=== PATIENT | female | born 1965 | race African-American/Black ===

== ENCOUNTER → 2016-03-21 | Outpatient (CLI) | payer MEDICARE, OTHER ==
[2016-03-21 18:08] LABS: Basophils % (A) 0 %; CHCM 30.7; Eosinophils # (A) 0.2 k/uL (0-0.7); Eosinophils % (A) 4 %; HCT 40.5 % (34.0-46.0); HDW 2.59; HGB 12.4 gm/dL (11.4-16.0); Hypochromasia Moderate; Luc # (Auto) 0.13; Luc % (Auto) 2; Lymphocytes # (A) 1.6 k/uL (1.0-4.8); Lymphocytes % (A) 29 %; MCH 27.1 pg (25.0-35.0); MCHC 30.6 g/dL (31.0-37.0); MCV 88.3 fL (80.0-100.0); Mean Platelet Volume 7.3; Monocytes # (A) 0.2 k/uL (0-1.0); Monocytes % (A) 4 %; Neutrophils # (A) 3.2 k/uL (1.3-7.7); Neutrophils % (A) 60 %; RBC 4.58 m/uL (3.80-5.40); RDW 13.6 % (11.5-15.5); WBC 5.3 k/uL (3.8-10.6); WBC (Perox) 5.52
[2016-03-21 19:11] LABS: ALT 32 U/L (9-52); AST 16 U/L (14-36); Alkaline Phosphatase 121 U/L (38-126); Anion Gap 12 mmol/L; Blood Urea Nitrogen 20 mg/dL (7-17); Calcium 9.5 mg/dL (8.4-10.2); Carbon Dioxide 22 mmol/L (22-30); Chloride 112 mmol/L (98-107); Glucose 82 mg/dL (74-99); Iron 58 ug/dL (37-170); Non-African American GFR(MDRD) 58 (>60 ml/min/1.73 sqM); Potassium 4.3 mmol/L (3.5-5.1); Sodium 146 mmol/L (137-145); Total Bilirubin 0.2 mg/dL (0.2-1.3); Total Protein 6.9 g/dL (6.3-8.2)
[2016-03-21 19:20] LABS: % Iron Saturation 14.4 % (20-50); Total Iron Binding Capacity 403 ug/dL (265-497)
[2016-03-21 19:56] LABS: Vitamin B12 362 pg/mL (239-931)
== END | disposition home or self-care (01) ==
LOC: LABWHC1 17:23
PROVIDERS: ATTEND Nurse Practitioner Acute Care
DX: E55.9 Vitamin D deficiency, unspecified (principal); R53.83 Other fatigue
CPT/HCPCS: 36415; 80053; 82306; 82607; 82728; 83540; 83550; 84439; 84443; 84466; 84481; 85025

== ENCOUNTER → 2016-03-30 | Outpatient (CLI) | payer MEDICARE, OTHER ==
--- NOTE | 2016-03-31 07:54 | US ---
EXAMINATION TYPE: US pelvis complete transvag DATE OF EXAM: 03/30/2016 5:12 PM COMPARISON: NONE CLINICAL HISTORY: N95.0 pOST MENOPAUSAL BLEEDING. PMB, Menses in Dec but has not had period for 2 yea rs TECHNIQUE: Transvaginal (TV) and Transabdominal (TA) Date of LMP: January, EXAM MEASUREMENTS: Uterus: 8.7 x 5.5 x 4.8 cm Endometrial Stripe: 0.4 cm Right Ovary: 3.8 x 2.6 x 2.4 cm Left Ovary: not seen Findings: 1. Uterus: Anteverted Heterogenous, Anterior fibroid, right= 5.8 x 4.3 x 4.1 cm. Fundal fibroid= 2.3 x 2.4 x 1.8 cm. 2. Endometrium: wnl 3. Right Ovary: lobular in shape with multiple echogenic foci, largest= 0.5 cm 4. Left Ovary: not seen Spectral, color and waveform doppler imaging shows good arterial and venous flow within the ovaries ; there is no evidence for ovarian torsion. 5. Bilateral Adnexa: wnl 6. Posterior cul-de-sac: no free fluid IMPRESSION: 1. Probable Leiomyomatous change of the uterus. Masses of other etiology not excluded. 2. Right ovarian calcifications of uncertain etiology.
== END | disposition home or self-care (01) ==
LOC: RADUSWWP 16:28
PROVIDERS: ATTEND Obstetrics & Gynecology
DX: N83.8 Other noninflammatory disorders of ovary, fallopian tube and broad ligament (principal); N95.0 Postmenopausal bleeding
CPT/HCPCS: 76830; 76856

== ENCOUNTER → 2016-05-31 | Outpatient (CLI) | payer MEDICARE, OTHER | END | disposition home or self-care (01) | LOC: LABWHC1 16:16 | PROVIDERS: ATTEND Psychiatry & Neurology Neurology | DX: E55.9 Vitamin D deficiency, unspecified (principal) | CPT/HCPCS: 36415; 82306 ==

== ENCOUNTER → 2016-07-02 | Outpatient (CLI) | payer MEDICARE, OTHER ==
[2016-07-02 08:32] LABS: Basophils % (A) 1 %; CH 26.8; Eosinophils # (A) 0.3 k/uL (0-0.7); Eosinophils % (A) 6 %; HCT 42.1 % (34.0-46.0); HDW 2.36; HGB 12.8 gm/dL (11.4-16.0); Hypochromasia Slight; Luc # (Auto) 0.14; Luc % (Auto) 3; Lymphocytes # (A) 1.7 k/uL (1.0-4.8); Lymphocytes % (A) 40 %; MCH 26.5 pg (25.0-35.0); MCHC 30.5 g/dL (31.0-37.0); MCV 86.9 fL (80.0-100.0); Mean Platelet Volume 7.1; Monocytes # (A) 0.3 k/uL (0-1.0); Monocytes % (A) 6 %; Neutrophils # (A) 1.9 k/uL (1.3-7.7); Neutrophils % (A) 44 %; RBC 4.84 m/uL (3.80-5.40); RDW 13.9 % (11.5-15.5); WBC 4.3 k/uL (3.8-10.6); WBC (Perox) 4.38
[2016-07-02 08:55] LABS: ALT 30 U/L (9-52); AST 14 U/L (14-36); Alkaline Phosphatase 109 U/L (38-126); Anion Gap 11 mmol/L; Blood Urea Nitrogen 16 mg/dL (7-17); Calcium 9.3 mg/dL (8.4-10.2); Carbon Dioxide 26 mmol/L (22-30); Chloride 108 mmol/L (98-107); Cholesterol 199 mg/dL (<200); Glucose 86 mg/dL (74-99); HDL Cholesterol 91 mg/dL (40-60); Non-African American GFR(MDRD) >60 (>60 ml/min/1.73 sqM); Potassium 4.3 mmol/L (3.5-5.1); Sodium 145 mmol/L (137-145); Total Bilirubin 0.4 mg/dL (0.2-1.3); Total Protein 6.9 g/dL (6.3-8.2); Triglycerides 61 mg/dL (<150)
== END | disposition home or self-care (01) ==
LOC: LABWHC1 07:54
PROVIDERS: ATTEND Family Medicine
DX: E78.5 Hyperlipidemia, unspecified (principal); E03.9 Hypothyroidism, unspecified; Z86.59 Personal history of other mental and behavioral disorders
CPT/HCPCS: 36415; 80053; 80061; 82306; 84439; 84443; 85025

== ENCOUNTER → 2016-08-20 | Outpatient (CLI) | payer MEDICARE, OTHER ==
--- NOTE | 2016-08-21 08:53 | MR ---
EXAMINATION TYPE: MR lumbar spine wo con DATE OF EXAM: 08/20/2016 5:35 PM COMPARISON: NONE HISTORY: LBP, BLE radic, no trauma/surgery Multiplanar, MultiSpin echo imaging of the lumbar spine was performed. L1-L2: Normal disc appearance without desiccation. There is mild posterocentral disc bulge without he rniation or protrusion. No canal stenosis is present. Foramina are patent bilaterally. L2-L3: Normal disc appearance without desiccation. No herniation, protrusion or disc bulging. No ca nal stenosis is present. Foramina are patent bilaterally. L3-L4: Normal disc appearance without desiccation. No herniation, protrusion or disc bulging. No ca nal stenosis is present. Foramina are patent bilaterally. L4-L5: Mild/moderate disc desiccation with mild posterior disc bulge. Grade 1 anterolisthesis L4 and L5 measuring 2 mm related to severe facet joint arthropathy. No evidence for central stenosis. L5-S1: Moderate disc desiccation. Posterior disc bulge with right paracentral disc protrusion. Mild e ffacement ventral thecal sac and mild right lateral recess stenosis. No evidence for central stenosis . Mild bilateral foraminal encroachment. Facet joint arthropathy. Lumbar segments are intact. No paraspinal masses are identified. Conus medullaris has a normal appe arance. IMPRESSION: 1. Degenerative disc disease as discussed. 2. Small right paracentral disc protrusion at L5-S1 with mild right lateral recess stenosis. 3. Grade 1 anterolisthesis L4 and L5.
== END | disposition home or self-care (01) ==
LOC: RADMRIMAIN 16:23
PROVIDERS: ATTEND Nurse Practitioner Acute Care
DX: M48.06 Spinal stenosis, lumbar region (principal); M51.26 Other intervertebral disc displacement, lumbar region; M51.36 Other intervertebral disc degeneration, lumbar region; M43.16 Spondylolisthesis, lumbar region
CPT/HCPCS: 72148

== ENCOUNTER → 2016-08-21 | Outpatient (CLI) | payer MEDICARE, OTHER ==
--- NOTE | 2016-08-22 07:39 | MM ---
Reason for exam: follow-up at short interval from prior study. Last mammogram was performed 7 months ago. History: Patient is postmenopausal. Benign US biopsy breast VAD RT of the right breast, July 17, 2013. Physical Findings: Nurse did not find any significant physical abnormalities on exam. MG 3D Diag Mammo W/Cad RT CC and MLO view(s) were taken of the right breast. Prior study comparison: February 03, 2016, right breast US breast workup limited RT. January 16, 2016, bilateral MG 3d screening mammo w/cad. July 22, 2014, bilateral MG screening mammo w CAD. June 25, 2013, bilateral MG screening mammo w CAD. There are scattered fibroglandular densities. Previous mammotome biopsy within the right breast. Ovoid nodular asymmetry is subtly seen again, posterior upper inner quadrant, not significantly changed. These results were verbally communicated with the patient and result sheet given to the patient on 08/21/16. ASSESSMENT: Incomplete: need additional imaging evaluation, BI-RAD 0 RECOMMENDATION: Ultrasound of the right breast.
--- NOTE | 2016-08-22 07:52 | USB ---
Reason for exam: additional evaluation requested from abnormal screening. History: Patient is postmenopausal. Benign US biopsy breast VAD RT of the right breast, July 17, 2013. US Breast RT Right breast ultrasound includes all four quadrants, the retroareolar region and axilla. Finding demonstrate a 9 x 3 x 7mm oval, hypoechoic lesion at 1 o'clock circumscribed, located deep. Previously measured 6 x 3 x 5mm, slightly larger now. This can again be reassessed in 6 months. These results were verbally communicated with the patient and result sheet given to the patient on 08/21/16. ASSESSMENT: Probably benign, BI-RAD 3 RECOMMENDATION: Follow-up diagnostic mammogram of both breasts in 5 months. Ultrasound of the right breast in 5 months. (1:00) Back on schedule December 2016.
== END | disposition home or self-care (01) ==
LOC: RADMAMWWP 14:59
PROVIDERS: ATTEND Family Medicine
DX: R92.8 Other abnormal and inconclusive findings on diagnostic imaging of breast (principal)
CPT/HCPCS: 76641; G0206; G0279

== ENCOUNTER → 2016-09-13 | Outpatient (CLI) | payer MEDICARE, OTHER ==
--- NOTE | 2016-09-14 07:32 | US ---
EXAMINATION TYPE: Soft tissue neck DATE OF EXAM: 09/13/2016 COMPARISON: NONE CLINICAL HISTORY: R22.1 Localized swelling, mass and lump, neck. Right posterior neck palpable mass 2.0 x 0.9 x 2.3 cm vascularity within. Fatty appearance Bilateral neck scanned, no evidence of lymphadenopathy. IMPRESSION: 1. Circumscribed soft tissue mass palpable abnormality may be a lipoma. Consider MRI with contrast to evaluate for liposarcoma.
--- NOTE | 2016-09-14 07:34 | US ---
EXAMINATION TYPE: US mass soft tissue chest/back DATE OF EXAM: 09/13/2016 COMPARISON: NONE CLINICAL HISTORY: PALPABLE MASS R22.1 LOCALIZED SWELLING. Left buttocks superior region 2-3 years 2.2 x 0.9 x 0.9 cm mass, vascularity within, mostly fatty appearing borders not clearly defined IMPRESSION: 1. Lipoma versus resolving old hematoma.
== END | disposition home or self-care (01) ==
LOC: RADUSWWP 15:34
PROVIDERS: ATTEND Family Medicine
DX: R22.1 Localized swelling, mass and lump, neck (principal); R22.2 Localized swelling, mass and lump, trunk
CPT/HCPCS: 76536

== ENCOUNTER → 2017-04-23 | Outpatient (CLI) | payer MEDICARE, OTHER ==
--- NOTE | 2017-04-23 12:19 | MM ---
Reason for exam: follow-up at short interval from prior study. Last mammogram was performed 8 months ago. History: Patient is postmenopausal. Benign US biopsy breast VAD RT of the right breast, July 17, 2013. Physical Findings: Nurse did not find any significant physical abnormalities on exam. MG 3D Diag Mammo W/Cad BRANDYN Bilateral CC and MLO view(s) were taken. Prior study comparison: August 21, 2016, right breast MG 3d diag mammo w/cad RT. January 16, 2016, bilateral MG 3d screening mammo w/cad. June 25, 2013, bilateral MG screening mammo w CAD. The breast tissue is heterogeneously dense. This may lower the sensitivity of mammography. There are benign appearing bilateral stable masses back to 2014. No suspicious abnormality. These results were verbally communicated with the patient and result sheet given to the patient on 04/23/17. ASSESSMENT: Benign, BI-RAD 2 RECOMMENDATION: Routine screening mammogram of both breasts in 1 year.
== END | disposition home or self-care (01) ==
LOC: RADMAMWWP 11:06
PROVIDERS: ATTEND Family Medicine
DX: R92.8 Other abnormal and inconclusive findings on diagnostic imaging of breast (principal)
CPT/HCPCS: 77066; G0279

== ENCOUNTER → 2017-06-26 | Outpatient (CLI) | payer MEDICARE, OTHER ==
[2017-06-26 09:19] LABS: HCT 39.7 % (34.0-46.0); HGB 12.6 gm/dL (11.4-16.0); MCH 26.5 pg (25.0-35.0); MCHC 31.7 g/dL (31.0-37.0); MCV 83.6 fL (80.0-100.0); Mean Platelet Volume 7.4; Platelet Count 287 k/uL (150-450); RBC 4.75 m/uL (3.80-5.40); RDW 13.8 % (11.5-15.5); WBC 4.7 k/uL (3.8-10.6)
[2017-06-26 10:11] LABS: Albumin 3.7 g/dL (3.5-5.0); Calcium 9.5 mg/dL (8.4-10.2); Magnesium 1.9 mg/dL (1.6-2.3); Phosphorus 3.7 mg/dL (2.5-4.5); Potassium 4.4 mmol/L (3.5-5.1); Total Bilirubin 0.2 mg/dL (0.2-1.3); Total Protein 6.3 g/dL (6.3-8.2)
[2017-06-26 16:34] LABS: Vitamin D 25 Hydroxy 16.4 ng/mL (30.0-100.0)
[2017-06-26 17:01] LABS: Parathyroid Hormone Intact 95.6 pg/mL (14.0-72.0)
[2017-06-26 17:24] LABS: Folate, Serum 15.1 ng/mL
[2017-06-26 18:48] LABS: Hemoglobin A1C 5.9 % (4.0-6.0)
[2017-07-01 08:33] LABS: Anabasine Urine <2.0 ng/mL (<2.0)
== END ==
LOC: LABWHC1 08:36
PROVIDERS: ATTEND Surgery
DX: Z01.818 Encounter for other preprocedural examination (principal); E55.9 Vitamin D deficiency, unspecified; E66.9 Obesity, unspecified; Z01.812 Encounter for preprocedural laboratory examination
CPT/HCPCS: 84134; 84425; 80061; 80053; 82607; 82746; 83735; 84100; 85027; 82306; 83970; 83036; 93005; 36415; G0480; 80323

== ENCOUNTER → 2018-05-21 | Outpatient (CLI) | payer MEDICARE ==
--- NOTE | 2018-05-21 11:57 | CT ---
EXAMINATION TYPE: CT chest wo con DATE OF EXAM: 05/21/2018 COMPARISON: None HISTORY: Cough, Abnormal findings of diagnostic imaging CT DLP: 631 mGycm. Automated Exposure Control for Dose Reduction was Utilized. TECHNIQUE: CT scan of the thorax is performed without IV contrast. FINDINGS: LUNGS: The lungs are grossly clear, there is no concerning parenchymal mass or nodule identified. T here is no pleural effusion or pneumothorax seen. The tracheobronchial tree is patent. Groundglass c hanges are seen within the left upper lobe lingular segment. 2 mm subpleural nodule posterior margin superior segment right lower lobe noted as a benign appearance. MEDIASTINUM: Lack of IV contrast is noted to limit evaluation for mediastinal and especially hilar ad enopathy. There are no definitive greater than 1 cm hilar or mediastinal lymph nodes. No cardiomega ly or pericardial effusion is seen. Atherosclerotic change of the aorta. OTHER: There is a 1 cm nodule within the right breast. Mammogram recommended. Hypertrophic and degene rative change of the spine noted.. IMPRESSION: 1. Faint groundglass changes within the lingular segment left upper lobe most likely in the basis of atelectasis rather than resolving pneumonitis or infiltrate correlate clinically. 2. There is a 2 mm subpleural nodule superior segment right lower lobe too small to characterize. Six -month follow-up could be obtained to confirm stability. 3. There is a 1 cm nodule within the right breast for which mammogram is suggested.
== END | disposition home or self-care (01) ==
LOC: RADCTMAIN 11:15
PROVIDERS: ATTEND Family Medicine
DX: J94.8 Other specified pleural conditions (principal); N63.0 Unspecified lump in unspecified breast; R91.8 Other nonspecific abnormal finding of lung field
CPT/HCPCS: 71250

== ENCOUNTER → 2018-09-03 | Outpatient (CLI) | payer MEDICARE, OTHER ==
--- NOTE | 2018-09-03 10:53 | MM ---
Reason for exam: additional evaluation requested from prior study. Last mammogram was performed 1 year and 4 months ago. History: Patient is postmenopausal. Benign US biopsy breast VAD RT of the right breast, July 17, 2013. Physical Findings: Nurse did not find any significant physical abnormalities on exam. MG 3D Diag Mammo W/Cad BRANDYN Bilateral CC and MLO view(s) were taken. Prior study comparison: April 23, 2017, bilateral MG 3d diag mammo w/cad BRANDYN. August 21, 2016, right breast MG 3d diag mammo w/cad RT. The breast tissue is heterogeneously dense. This may lower the sensitivity of mammography. Previous mammotome biopsy in the right breast. There is chronic nodularity in the left breast. There is no discrete abnormality. These results were verbally communicated with the patient and result sheet given to the patient on 09/03/18. ASSESSMENT: Benign, BI-RAD 2 RECOMMENDATION: Routine screening mammogram of both breasts in 1 year.
--- NOTE | 2018-09-03 10:54 | USB ---
Reason for exam: additional evaluation requested from prior study. History: Patient is postmenopausal. Benign US biopsy breast VAD RT of the right breast, July 17, 2013. US Breast RT Right complete breast ultrasound includes all four quadrants, the retroareolar region and axilla. Finding demonstrates a 0.8 x 0.4 x 0.7cm oval, hypoechoic lesion at 1 o'clock, stable from 2017, perhaps prominent lobule. These results were verbally communicated with the patient and result sheet given to the patient on 09/03/18. ASSESSMENT: Benign, BI-RAD 2 RECOMMENDATION: Routine screening mammogram of both breasts in 1 year.
== END | disposition home or self-care (01) ==
LOC: RADMAMWWP 09:06
PROVIDERS: ATTEND Family Medicine
DX: R92.8 Other abnormal and inconclusive findings on diagnostic imaging of breast (principal)
CPT/HCPCS: 77066; 76641; G0279; 77062

== ENCOUNTER → 2019-04-30 | Outpatient (CLI) | payer MEDICARE, OTHER ==
--- NOTE | 2019-04-30 12:28 | CT ---
EXAMINATION TYPE: CT chest wo con DATE OF EXAM: 04/30/2019 COMPARISON: 05/21/2018 HISTORY: Lung nodule, SOB CT DLP: 459 mGycm. Automated Exposure Control for Dose Reduction was Utilized. TECHNIQUE: CT scan of the thorax is performed without IV contrast. FINDINGS: LUNGS: The lungs are grossly clear, there is no concerning parenchymal mass or nodule identified. The re is no pleural effusion or pneumothorax seen. The tracheobronchial tree is patent. Groundglass mix ges are seen within the left upper lobe lingular segment. 2 mm subpleural nodule posterior margin sup erior segment right lower lobe noted as a benign appearance. Atherosclerotic change of the aorta. MEDIASTINUM: Lack of IV contrast is noted to limit evaluation for mediastinal and especially hilar ad enopathy. There are no definitive greater than 1 cm hilar or mediastinal lymph nodes. No cardiomega ly or pericardial effusion is seen. OTHER: There is a 1 cm nodule within the right breast is stable. Hypertrophic and degenerative gillette e of the spine noted. . IMPRESSION: 1. Stable subpleural nodule measuring 1 to 2 mm superior segment right lower lobe likely postinflamma tory. Has a benign appearance. 2. Vague groundglass changes within the lingular segment left upper lobe persist and are stable could represent chronic atelectasis. 3. Stable right breast nodule or nodular tissue unchanged from prior exam
== END | disposition home or self-care (01) ==
LOC: RADCTMAIN 11:15
PROVIDERS: ATTEND Internal Medicine Pulmonary Disease
DX: R91.1 Solitary pulmonary nodule (principal); E66.01 Morbid (severe) obesity due to excess calories
CPT/HCPCS: 71250

== ENCOUNTER → 2019-09-03 | Outpatient (CLI) | payer MEDICARE, OTHER ==
--- NOTE | 2019-09-03 18:12 | P.HPBAR ---
Bariatric H&P - History & Physicial H&P Date: 09/03/19 History & Physicial: Visit/CC: Patient initial contact: Initial weight: Initial weight in pounds: Height: Initial BMI: Last weight: Current weight: Current weight in pounds: Current BMI: [place] body weight (based on NIH guidelines): Excess body weight loss: The patient is a 54 year-old F who presents for Bariatric Assessment. Patient here to discuss bariatric surgery. She was previously seen at [facility] for sleeve gastrectomy. Apparently there were some issues with her family's health and she had to postpone. Remains interested in sleeve gastrectomy. Current BMI 38.6. Patient suffers from hypertension and hypercholesterolemia. Denies diabetes or GERD. No dysphagia or DVT. No upper abdominal surgeries in the past. Patient is a current smoker but states she is decreasing. Review of Systems The patient denies any acute changes in vision or hearing, no dysphagia or odynophagia, no chest pain or shortness of breath, no dysuria or hematuria, no headache, no runny nose, no rectal bleeding or melena, no unexplained weight loss Surgical - Exam Physical exam: General: Well-developed, well-nourished HEENT: Normocephalic, sclerae nonicteric Abdomen: Nontender, nondistended Extremities: No edema Neuro: Alert and oriented Bariatric Assessment & Plan (1) Morbid obesity Narrative/Plan: Both surgical and nonoperative weight loss methods discussed with the patient. Risks and benefits of both gastric bypass and sleeve gastrectomy discussed in detail as well. Patient remains interested in sleeve gastrectomy at this time. We'll proceed with upper endoscopy at this time. Obtain medical clearance. Clarify whether to revise weight loss is required. Patient will follow up in the bariatric clinic after endoscopy performed. Status: Acute Bariatric Checklist Checklist: Plan: Checklist: EGD: 1. Hiatal hernia: 2. H. Pylori: HgbA1c: Vitamin D: Smoking: Primary care physician referral: Psychiatry clearance: Cardiology clearance: Sleep study: Diet journal: VTE risk score: VTE risk level: Rehab needs at discharge:
== END | disposition home or self-care (01) ==
LOC: BARWHC3 15:27
PROVIDERS: ATTEND Surgery
DX: E66.01 Morbid (severe) obesity due to excess calories (principal); Z68.38 Body mass index [BMI] 38.0-38.9, adult; I10 Essential (primary) hypertension; E78.00 Pure hypercholesterolemia, unspecified; F17.200 Nicotine dependence, unspecified, uncomplicated
CPT/HCPCS: 99211

== ENCOUNTER → 2019-10-05 | Outpatient (CLI) | payer MEDICARE, OTHER ==
[2019-10-05 13:06] VITALS: BMI 43.3
== END | disposition home or self-care (01) ==
LOC: BARWHC3 08:42
PROVIDERS: ATTEND Surgery
DX: E66.01 Morbid (severe) obesity due to excess calories (principal); Z68.41 Body mass index [BMI] 40.0-44.9, adult; Z71.3 Dietary counseling and surveillance
CPT/HCPCS: 97804

== ENCOUNTER 2019-10-13 09:17 | Day surgery (SDC) | payer MEDICARE, OTHER ==
[2019-10-08 14:51] VITALS: BMI 41.9
[~2019-10-13 09:17] MED LIST: LACTATED RINGERS 1,000 ML IV SCH; LIDOCAINE 1% (10MG/ML) FOR IV START INTRADERMA PRN
[2019-10-13] MEDS ORDERED: LIDOCAINE 1% INJ 10MG/ML (20 ML MDV) ONE (10:02)
[2019-10-13] MEDS ORDERED: PROPOFOL 10 MG/ML 20 ML VIAL IV ONE (10:02)
[2019-10-13] MEDS ORDERED: ONDANSETRON 4 MG/2 ML VIAL ONE (10:02)
[2019-10-13 10:03] VITALS: RESP 16; TEMP 97
--- NOTE | 2019-10-13 10:05 | P.GSHP ---
History of Present Illness H&P Date: 10/13/19 Chief Complaint: GERD Patient today for upper endoscopy. Patient is being evaluated for sleep gastrectomy. Denies dysphagia. Minimal reflux. Past Medical History Past Medical History: Hyperlipidemia, Hypertension, Osteoarthritis (OA) History of Any Multi-Drug Resistant Organisms: None Reported Past Surgical History: Tubal Ligation Additional Past Surgical History / Comment(s): FIBROID SURGERY Past Anesthesia/Blood Transfusion Reactions: No Reported Reaction Smoking Status: Current every day smoker Medications and Allergies Home Medications Medication Instructions Recorded Confirmed Type Acetaminophen-Codeine 300-30mg 1 tab PO DIRECTED PRN 09/14/19 10/13/19 History [Tylenol w/codeine #3] Acyclovir 400 mg PO DIRECTED 09/14/19 10/13/19 History Ascorbic Acid [Vitamin C] 1,000 mg PO DAILY 09/14/19 10/13/19 History Atorvastatin [Lipitor] 40 mg PO HS 09/14/19 10/13/19 History Cholecalciferol (Vitamin D3) 1,000 units PO DAILY 09/14/19 10/13/19 History [Vitamin D3] Multivitamins, Thera [Multivitamin 1 tab PO DAILY 09/14/19 10/13/19 History (formulary)] QUEtiapine XR [SEROquel XR] 150 mg PO DAILY 09/14/19 10/13/19 History Zinc 50 mg PO DAILY 09/14/19 10/13/19 History buPROPion XL [Wellbutrin XL] 300 mg PO DAILY 09/14/19 10/13/19 History hydroCHLOROthiazide 25 mg PO DAILY 09/14/19 10/13/19 History Aspirin [Adult Low Dose Aspirin EC] 81 mg PO DAILY 10/08/19 10/13/19 History Biotin 5 mg PO DAILY 10/08/19 10/13/19 History Butalb/Acetaminophen/Caffeine 1 - 2 cap PO Q4HR PRN 10/08/19 10/13/19 History [Fioricet 50-300-40 mg Capsule] Calcium Carbonate [Calcium] 600 mg PO DAILY 10/08/19 10/13/19 History Magnesium 200 mg PO DAILY 10/08/19 10/13/19 History Vitamin E Acetate [Vitamin E] 200 unit PO DAILY 10/08/19 10/13/19 History tiZANidine [Zanaflex] 4 mg PO Q8HR PRN 10/08/19 10/13/19 History Allergies Allergy/AdvReac Type Severity Reaction Status Date / Time No Known Allergies Allergy Verified 10/13/19 09:41 Surgical - Exam Vital Signs Temp Pulse Resp BP Pulse Ox 97.0 F L 89 16 131/81 100 10/13/19 09:45 10/13/19 09:45 10/13/19 09:45 10/13/19 09:45 10/13/19 09:45 Physical exam: General: Well-developed, well-nourished HEENT: Normocephalic, sclerae nonicteric Abdomen: Nontender, nondistended Extremities: No edema Neuro: Alert and oriented Assessment and Plan (1) GERD (gastroesophageal reflux disease) Narrative/Plan: Will proceed with upper endoscopy at this time Current Visit: Yes Status: Acute Code(s): K21.9 - GASTRO-ESOPHAGEAL REFLUX DISEASE WITHOUT ESOPHAGITIS SNOMED Code(s): 569691901
--- NOTE | 2019-10-13 10:13 | P.PCN ---
Date of Procedure: 10/13/19 Procedure(s) Performed: Preoperative Dx: Mild reflux, presurgical Postoperative Dx: Mild gastritis, small hiatal hernia Procedure: EGD with Bx Anesthesia: Sedation Endoscopist: Dr. Damon Specimens: Antrum Endoscopic Procedure: The patient was on the endoscopy table in the left decubitus position. The Olympus gastroscope was inserted into the oropharynx and passed under direct visualization to the region of the third portion of the duodenum. From that point the scope was slowly withdrawn inspecting all surfaces carefully. There were no neoplastic inflammatory or polypoid lesions throughout the duodenum. The pylorus was widely patent. The stomach was carefully inspected. There was mild gastritis present. A biopsy of the antrum took place to rule out H. pylori. Retroflexion revealed a small hiatal hernia. The GE junction was present 1-1.5 cm above the diaphragmatic hiatus. The esophagus was then carefully examined. There were no neoplastic inflammatory or polypoid lesions throughout the visualized esophagus. The patient was then taken to the recovery room in stable condition per anesthesia guidelines. Recommendations: Await biopsy results. Follow-up bariatric clinic to discuss surgical scheduling. Patient still working on nicotine addiction.
[2019-10-13 10:42] VITALS: BP 116/76; PULSE 73
== END 2019-10-13 11:24 | disposition home or self-care (01) ==
LOC: ORWHC2ENDO 09:17
PROVIDERS: ATTEND Surgery
DX: K29.70 Gastritis, unspecified, without bleeding (principal); K44.9 Diaphragmatic hernia without obstruction or gangrene; K21.9 Gastro-esophageal reflux disease without esophagitis; E66.01 Morbid (severe) obesity due to excess calories; I10 Essential (primary) hypertension; E78.5 Hyperlipidemia, unspecified; F32.9 Major depressive disorder, single episode, unspecified; F17.200 Nicotine dependence, unspecified, uncomplicated; M19.90 Unspecified osteoarthritis, unspecified site; Z98.51 Tubal ligation status; Z98.890 Other specified postprocedural states; Z79.891 Long term (current) use of opiate analgesic; Z79.82 Long term (current) use of aspirin; Z79.899 Other long term (current) drug therapy; Z68.41 Body mass index [BMI] 40.0-44.9, adult
CPT/HCPCS: 88305; 43239; J2405; J2001; J2704

== ENCOUNTER → 2019-11-03 | Outpatient (CLI) | payer MEDICARE, OTHER ==
[2019-11-03 14:59] LABS: Basophils % (A) 1 %; Eosinophils # (A) 0.2 k/uL (0-0.7); Eosinophils % (A) 4 %; HCT 41.6 % (34.0-46.0); HGB 12.7 gm/dL (11.4-16.0); Lymphocytes # (A) 2.1 k/uL (1.0-4.8); Lymphocytes % (A) 37 %; MCH 26.6 pg (25.0-35.0); MCHC 30.5 g/dL (31.0-37.0); Mean Platelet Volume 7.9; Monocytes # (A) 0.2 k/uL (0-1.0); Monocytes % (A) 4 %; Neutrophils % (A) 52 %; Platelet Count 299 k/uL (150-450); RBC 4.79 m/uL (3.80-5.40); RDW 14.2 % (11.5-15.5); WBC 5.7 k/uL (3.8-10.6)
[2019-11-03 15:06] LABS: ALT 33 U/L (4-34); AST 27 U/L (14-36); African American GFR (CKD) >90 (>60 ml/min/1.73 sqM); Alkaline Phosphatase 126 U/L (38-126); Anion Gap 7 mmol/L; Blood Urea Nitrogen 24 mg/dL (7-17); Calcium 9.9 mg/dL (8.4-10.2); Carbon Dioxide 28 mmol/L (22-30); Chloride 106 mmol/L (98-107); Glucose 88 mg/dL (74-99); Non-African American GFR(CKD) 82 (>60 ml/min/1.73 sqM); Potassium 4.1 mmol/L (3.5-5.1); Sodium 141 mmol/L (137-145); Total Bilirubin 0.3 mg/dL (0.2-1.3); Total Protein 6.7 g/dL (6.3-8.2)
== END | disposition home or self-care (01) ==
LOC: LABPAT 14:20
PROVIDERS: ATTEND Surgery
DX: Z01.818 Encounter for other preprocedural examination (principal)
CPT/HCPCS: 36415; 80053; 85025

== ENCOUNTER → 2019-11-03 | Outpatient (CLI) | payer MEDICARE, OTHER ==
[2019-11-03 13:25] VITALS: BP 141/88; PULSE 79; RESP 16; TEMP 98.4; BMI 43.7
--- NOTE | 2019-11-03 15:41 | P.BASOAP ---
Subjective Progress Note Date: 11/03/19 Principal diagnosis: Morbid obesity Patient returns after recent preop EGD. Scope showed gastritis and a small hiatal hernia. Patient remains interested in proceeding with sleeve gastrectomy. No new changes to the history and physical. Objective - Vital Signs Vital signs: Vital Signs Temp 98.4 F 11/03/19 13:23 Pulse 79 11/03/19 13:23 Resp 16 11/03/19 13:23 BP 141/88 11/03/19 13:23 Pulse Ox Intake & Output 11/02/19 11/03/19 11/03/19 18:59 06:59 18:59 Weight 119.295 kg - Exam Physical exam: General: Well-developed, well-nourished HEENT: Normocephalic, sclerae nonicteric Abdomen: Nontender, nondistended Extremities: No edema Neuro: Alert and oriented Assessment/Plan (1) Morbid obesity Narrative/Plan: 54-year-old female with morbid obesity. We'll proceed with sleeve gastrectomy 11/22. The surgical consent form along with the possible risks were reviewed in detail with the patient. All questions answered. She wishes to proceed. Will plan repair hiatal hernia at that time. Plan: Date: 11/03/19 Initial Weight: 118.388 kg Initial BMI: 43.4 Current Weight: 119.295 kg Current BMI: 43.7 Type of Surgery: Total Volume in Band: Previous Volume: Volume Removed: Volume Added: Band Size:
== END | disposition home or self-care (01) ==
LOC: BARWHC3 12:56
PROVIDERS: ATTEND Surgery
DX: E66.01 Morbid (severe) obesity due to excess calories (principal); Z68.41 Body mass index [BMI] 40.0-44.9, adult
CPT/HCPCS: 99211

== ENCOUNTER 2019-11-23 07:45 | Inpatient (IN) | payer MEDICARE, OTHER ==
[~2019-11-23 07:45] MED LIST changes: +ACETAMINOPHEN TAB 500 MG TAB PO ONE; +DEXAMETHASONE SOD PHOSPHATE 10 MG/ML 1 ML VIAL IV ONE; +ENOXAPARIN 40 MG/0.4 ML SYRINGE SQ ONE; -LACTATED RINGERS 1,000 ML IV SCH; -LIDOCAINE 1% (10MG/ML) FOR IV START INTRADERMA PRN; +ONDANSETRON 4 MG/2 ML VIAL IVP ONE; +SCOPOLAMINE 1.5MG/72HR PATCH TRANSDERM ONE; +ceFAZolin 3 GM in SODIUM CHLORIDE 0.9% 100 ML IVPB ONE
[2019-11-23] MEDS: LACTATED RINGERS 1,000 ML IV SCH ×2 (10:58→23:49)
[2019-11-23] MEDS ORDERED: ACETAMINOPHEN IV (For NPO) 1,000 MG/100 ML VIAL IVPB ONE (11:19)
--- NOTE | 2019-11-23 11:53 | P.GSHP ---
History of Present Illness H&P Date: 11/23/19 Chief Complaint: Morbid obesity Patient here today for elective sleeve gastrectomy. She was first seen in August. Patient with complaints of hypertension hypercholesterolemia. Patient has suffered with her weight for the majority of her life. BMI when evaluated initially 38.6. Denies DVT or dysphagia. Recent EGD showed mild gastritis and small hiatal hernia. No new issues since her last clinic visit. She was smoking but has stopped as of several weeks ago. Past Medical History Past Medical History: Hyperlipidemia, Hypertension Additional Past Medical History / Comment(s): hx migraines, states chronic back pain History of Any Multi-Drug Resistant Organisms: None Reported Past Surgical History: Tubal Ligation Additional Past Surgical History / Comment(s): FIBROID SURGERY, EGD Past Anesthesia/Blood Transfusion Reactions: No Reported Reaction Smoking Status: Former smoker Medications and Allergies Home Medications Medication Instructions Recorded Confirmed Type Acetaminophen-Codeine 300-30mg 1 tab PO DIRECTED PRN 09/14/19 11/23/19 History [Tylenol w/codeine #3] Acyclovir 400 mg PO DIRECTED 09/14/19 11/23/19 History Ascorbic Acid [Vitamin C] 1,000 mg PO DAILY 09/14/19 11/23/19 History Atorvastatin [Lipitor] 40 mg PO HS 09/14/19 11/23/19 History Cholecalciferol (Vitamin D3) 1,000 units PO DAILY 09/14/19 11/23/19 History [Vitamin D3] Multivitamins, Thera [Multivitamin 1 tab PO DAILY 09/14/19 11/23/19 History (formulary)] QUEtiapine XR [SEROquel XR] 150 mg PO HS 09/14/19 11/23/19 History Zinc 50 mg PO DAILY 09/14/19 11/23/19 History buPROPion XL [Wellbutrin XL] 300 mg PO DAILY 09/14/19 11/23/19 History hydroCHLOROthiazide 25 mg PO DAILY 09/14/19 11/23/19 History Aspirin [Adult Low Dose Aspirin EC] 81 mg PO DAILY 10/08/19 11/23/19 History Biotin 5 mg PO DAILY 10/08/19 11/23/19 History Butalb/Acetaminophen/Caffeine 1 - 2 cap PO Q4HR PRN 10/08/19 11/23/19 History [Fioricet 50-300-40 mg Capsule] Calcium Carbonate [Calcium] 600 mg PO DAILY 10/08/19 11/23/19 History Magnesium 200 mg PO DAILY 10/08/19 11/23/19 History Vitamin E Acetate [Vitamin E] 200 unit PO DAILY 10/08/19 11/23/19 History tiZANidine [Zanaflex] 4 mg PO Q8HR PRN 10/08/19 11/23/19 History Allergies Allergy/AdvReac Type Severity Reaction Status Date / Time No Known Allergies Allergy Verified 11/23/19 10:43 Surgical - Exam Vital Signs Temp 97 F L 11/23/19 10:35 Physical exam: General: Well-developed, well-nourished HEENT: Normocephalic, sclerae nonicteric Abdomen: Nontender, nondistended Extremities: No edema Neuro: Alert and oriented Assessment and Plan (1) Morbid obesity Narrative/Plan: Will proceed with elective sleeve gastrectomy at this time. The risks of bleeding, infection, stenosis, stricture, leak, abscess, fistula formation, peritonitis, poor weight loss, reflux, vomiting, conversion to an open procedure, aborting sleeve gastrectomy, GA, PE, DVT, and were discussed. The patient understands and wishes to proceed. Current Visit: No Status: Acute Code(s): E66.01 - MORBID (SEVERE) OBESITY DUE TO EXCESS CALORIES SNOMED Code(s): 358538140
[2019-11-23] MEDS ORDERED: BUPIVACAINE (PF) 0.25% 30 ML VIAL SQ ONE ×2 (12:59)
[2019-11-23] MEDS ORDERED: LACTATED RINGERS 1,000 ML IV ONE ×2 (13:51)
[2019-11-23] MEDS ORDERED: HYOSCYAMINE ORAL DROPS 1.875 MG/15 ML BOTTLE PO PRN (14:27)
[2019-11-23] MEDS ORDERED: SIMETHICONE 40 MG/0.6 ML DROPS 2,000 MG/30 ML BOTTLE PO PRN (14:27)
[2019-11-23] MEDS ORDERED: NALOXONE 0.4 MG/ML 1 ML VIAL IV PRN (14:27)
[2019-11-23] MEDS ORDERED: diphenhydrAMINE 50 MG/ML 1 ML VIAL IVP PRN (14:27)
--- NOTE | 2019-11-23 14:27 | P.OP ---
Date of Procedure: 11/23/19 Procedure(s) Performed: PREOPERATIVE DIAGNOSIS: Morbid obesity, hypertension POSTOPERATIVE DIAGNOSIS: Same PROCEDURE: Laparoscopic sleeve gastrectomy SURGEON: Marisol EBL: Minimal ANESTHESIA: General COMPLICATIONS: None OPERATIVE PROCEDURE: Patient was placed in the operating table in the supine position. She was placed under general anesthesia at that time. The abdomen was prepped and draped in sterile fashion after the patient was placed in lithotomy. A 5 mm optical trocar was used to enter the abdominal cavity in the left upper quadrant. Insufflation took place to 15 millimeters mercury. An additional right subxiphoid 5 mm trocar was then placed under direct visualization and then removed. 2 additional 5 mm trochars were placed in the right upper quadrant and left upper quadrant under direct visualization and a 15 mm trocar in the supraumbilical location. The liver was retracted using a medium Carroll liver retractor through the right subxiphoid trocar site. The hiatus was inspected. The patient had no visible hiatal hernia I did dissect the posterior crura. I was able to visualize the right and left crura nicely. There was no is unable defect in the crura. The patient had a very oblique angle where the esophagus passed through the diaphragmatic crura which may have been given the appearance of a hernia. The stomach itself was somewhat unusual in its shape as well. The patient had a pylorus that was positioned more proximally than expected. The proximal duodenum was slightly distended. Initially was difficult to identify the transition point between the prepyloric region and duodenum. At that point I moved to the mid aspect of the greater curvature the stomach. The short gastric vasculature was divided using a LigaSure device proximally. I then switched and divided the short gastrics distally to a 3-4 cm from the pylorus. The dissection took place up to the left diaphragmatic crura at that point. The posterior short gastrics were likewise divided using the LigaSure device. Once the stomach was fully mobilized the blunt tipped 40-St Lucian bougie dilator was advanced into the stomach and advanced all the way to the prepyloric location. A black echelon 60 stapler was utilized and fired tangentially across the antrum taking care to avoid narrowing at the incisura angularis. Subsequent firings of the stapler took place. A total of 5 green echelon 60 staplers with seam guard took place proximally staying on the outer edge of our dilator. Once we reached the most proximal portion of the stomach a single firing of the gold echelon 60 stapler without seen guard took place. The oral gastric tube was reinserted. The stomach was insufflated with approximately 100 mL of methylene blue. No evidence of leak or obstruction was seen. There was 2-3 areas along the staple line of oozing. These were controlled using the 12 mm clipper. Tisseel fibrin glue was used along the length of the staple line at that point. The stomach remnant was removed from the 15 mm trocar site without difficulty. The fascia at the 15 more site was closed using interrupted 0 Vicryl sutures with the laparoscopic suture passer and Hay Emily technique. The insufflation was evacuated. The skin at all 5 incisions were closed using 4-0 Monocryl sutures. Skin glue was then applied. DISPOSITION: Stable to recovery room
[2019-11-23] MEDS: HYDROmorphone 0.5 MG/0.5 ML SYRINGE IVP PRN ×4 (14:35→14:59)
[2019-11-23] MEDS: ONDANSETRON 4 MG/2 ML VIAL IVP PRN ×2 (14:42→21:08)
[2019-11-23] MEDS ORDERED: PROMETHAZINE INJ 25 MG/ML 1 ML VIAL IVPB ONE (15:04)
[2019-11-23] MEDS: fentaNYL (PF) 50 MCG/ML 2 ML AMP IVP ONE ×2 (15:54→16:06)
[2019-11-23] MEDS: HYDROmorphone 1 MG/ML 1 ML SYRINGE IVP PRN ×2 (17:00→21:08)
[2019-11-23] MEDS ORDERED: ACETAMINOPHEN IV (For NPO) 1,000 MG in EMPTY BAG 1 BAG IVPB ONE (18:00)
[2019-11-23] MEDS: ALBUTEROL NEBULIZED 2.5 MG/3 ML INHALATION SCH (19:56)
[2019-11-23] MEDS: 0.9% NACL WITH KCL 20 MEQ/L 1,000 ML IV SCH ×2 (21:08→23:49)
[2019-11-23] MEDS: ENOXAPARIN 40 MG/0.4 ML SYRINGE SQ SCH (23:47)
[2019-11-24] MEDS: HYDROmorphone 1 MG/ML 1 ML SYRINGE IVP PRN ×3 (01:08→07:38)
[2019-11-24] MEDS: ONDANSETRON 4 MG/2 ML VIAL IVP PRN ×2 (04:14→11:00)
[2019-11-24] MEDS: PANTOPRAZOLE 40 MG/10 ML VIAL IV SCH (07:38)
[2019-11-24] MEDS: 0.9% NACL WITH KCL 20 MEQ/L 1,000 ML IV SCH (07:39)
[2019-11-24 08:10] LABS: Basophils % (A) 0 %; Eosinophils # (A) 0.1 k/uL (0-0.7); Eosinophils % (A) 2 %; HCT 38.1 % (34.0-46.0); HGB 12.1 gm/dL (11.4-16.0); Lymphocytes # (A) 1.4 k/uL (1.0-4.8); Lymphocytes % (A) 16 %; MCH 27.5 pg (25.0-35.0); MCHC 31.7 g/dL (31.0-37.0); MCV 86.5 fL (80.0-100.0); Mean Platelet Volume 8.2; Monocytes # (A) 0.3 k/uL (0-1.0); Monocytes % (A) 4 %; Neutrophils # (A) 6.3 k/uL (1.3-7.7); Neutrophils % (A) 77 %; Platelet Count 307 k/uL (150-450); RDW 14.2 % (11.5-15.5); WBC 8.2 k/uL (3.8-10.6)
[2019-11-24] MEDS: ALBUTEROL NEBULIZED 2.5 MG/3 ML INHALATION SCH ×4 (09:06→21:14)
--- NOTE | 2019-11-24 09:29 | CONS ---
CONSULTATION REASON FOR CONSULTATION: Advice regarding hypertension requested by Dr. Damon. HISTORY OF PRESENT ILLNESS: This is a 54-year-old woman with a past medical history of hypertension, hyperlipidemia, history of migraines, history of chronic back pain being followed by Dr. Pricilla Thomas in the outpatient setting, underwent laparoscopic sleeve gastrectomy by Dr. Damon for morbid obesity and hypertension. The patient tolerated the procedure well. The patient complains of postoperative pain. Otherwise, there is no history of shortness of breath, no history of chest pain, palpitations, headache, loss of consciousness, nausea, diarrhea, fever, rigors or chills at this time. PAST MEDICAL HISTORY: History of hypertension, hyperlipidemia, history of migraines, history of chronic back pain, tubal ligation, anxiety, depression. MEDICATIONS: Prior to admission include Zanaflex, hydrochlorothiazide, Wellbutrin XL, zinc, vitamin E, Seroquel XR, multivitamins, magnesium, cholecalciferol, calcium carbonate, Fioricet, biotin, Lipitor, aspirin, vitamin C, acyclovir, Tylenol No.3. ALLERGIES: None. FAMILY HISTORY: No history of heart disease or strokes in the family. SOCIAL HISTORY: No history of smoking. No history of alcohol intake. REVIEW OF SYSTEMS: ENT: No diminished hearing, diminished vision. CARDIOVASCULAR: No angina, palpitations. RESPIRATORY: As mentioned earlier. GI: As mentioned earlier. : No dysuria. NERVOUS SYSTEM: No numbness or weakness. ALLERGY/IMMUNOLOGY: No asthma or hayfever. MUSCULOSKELETAL: As mentioned earlier. ENDOCRINE: No history of diabetes or hypothyroidism. CONSTITUTIONAL: As mentioned earlier. DERMATOLOGY: Negative. RHEUMATOLOGY: Negative. PSYCHIATRY: As mentioned earlier. PHYSICAL EXAMINATION: Patient is alert and oriented x3, pulse is 73, blood pressure 118/80, respiration 18, temperature 97.4, pulse ox 100% on room air. HEENT: Conjunctivae normal. Oral mucosa moist. NECK: No jugular venous distention. No lymph node enlargement. CARDIOVASCULAR: S1, S2, muffled. RESPIRATION: Breath sounds diminished at the bases, no rhonchi, no crackles. ABDOMEN: Soft, obese, status post laparoscopic gastrectomy. Otherwise, soft. LEGS: No edema, no swelling. NERVOUS SYSTEM: Higher functions as mentioned earlier. Moves all 4 limbs. No focal motor and sensory deficits. LYMPHATICS: No lymph node enlargement. SKIN: No ulcer, rash. JOINTS: No active arthropathy. LABS: Preoperative labs are reviewed. CBC within normal limits. Chemistry shows BUN 24, otherwise within normal limits. ASSESSMENT: 1. Morbid obesity, status post laparoscopic sleeve gastrectomy. 2. History of hypertension. 3. History of hyperlipidemia. 4. History of migraines. 5. Chronic back pain. 6. DJD. 7. History of anxiety, depression. 8. Remote history of nicotine dependence. 9. Obesity with body mass of 41.6. 10.FULL CODE. RECOMMENDATION: In this 54-year-old woman who presented after surgery had multiple medical issues, at this time I recommend to resume the home medications once the patient is p.o. Otherwise, DVT prophylaxis, incentive spirometry. Will follow the patient closely with you and patient may be asked to follow up with Dr. Pricilla Thomas after discharge. Thank you Dr. Damon for letting us participate in the care of this patient. MMODL / IJN: [id number] /
--- NOTE | 2019-11-24 09:54 | FL ---
EXAMINATION TYPE: FL UGI DATE OF EXAM: 11/24/2019 COMPARISON: NONE HISTORY: Post Norman fundoplication TECHNIQUE: A single contrast UGI study is performed. Approximately 25 cc of Isovue-370. 3 images sub mitted. FINDINGS: Hepatic contrast was swallowed without difficulty and passed from the esophagus into the stomach with no evidence of obstruction. Surgical clips in the epigastrium noted. Trace amount of free air not ex cluded. IMPRESSION: 1. No evidence of obstruction or extravasation.
[2019-11-24] MEDS: KETOROLAC 15 MG/ML 1 ML VIAL IVP SCH ×3 (12:04→23:27)
[2019-11-24 12:33] LABS: African American GFR (CKD) 113.8 (60.0-200.0); Anion Gap 14.6 mmol/L (4.00-12.00); Calcium 8.9 mg/dL (8.7-10.3); Carbon Dioxide 17.4 mmol/L (21.6-31.8); Magnesium 1.7 mg/dL (1.5-2.4); Non-African American GFR(CKD) 98.2 (60.0-200.0); Phosphorus 2.7 mg/dL (2.4-5.1); Potassium 4.4 mmol/L (3.5-5.5)
[2019-11-24 12:59] VITALS: BMI 41.3
[2019-11-24] MEDS: ACETAMINOPHEN ORAL SUSP 160 MG/5 ML CUP PO PRN ×2 (13:10→23:26)
[2019-11-24] MEDS: ENOXAPARIN 40 MG/0.4 ML SYRINGE SQ SCH ×2 (13:11→23:27)
--- NOTE | 2019-11-24 16:15 | P.PN ---
Subjective Progress Note Date: 11/24/19 Principal diagnosis: Morbid obesity Patient complaining of nausea today. Pain is not too bad. Upper GI shows no evidence of leak or obstruction. No vomiting. Some dry heaves. White blood cell count normal. She is afebrile. Objective - Vital Signs Vital signs: Vital Signs Temp 98.2 F 11/24/19 15:00 Pulse 76 11/24/19 16:07 Resp 20 11/24/19 15:00 BP 124/82 11/24/19 15:00 Pulse Ox 97 11/24/19 15:00 Intake & Output 11/23/19 11/24/19 11/24/19 18:59 06:59 18:59 Intake Total 1700 Output Total 5 Balance 1695 Weight 112.6 kg 112.6 kg Intake: IV 1700 Output: Estimated Blood Loss 5 Other: # Voids 1 2 - Exam Abdomen: Soft, nondistended, incision clean and dry, minimal tenderness - Labs CBC & Chem 7: 11/24/19 07:36 11/24/19 07:36 Labs: Abnormal Lab Results - Last 24 Hours (Table) 11/24/19 Range/Units 07:36 Chloride 110 H (96-109) mmol/L Carbon Dioxide 17.4 L (21.6-31.8) mmol/L Anion Gap 14.60 H (4.00-12.00) mmol/L Assessment and Plan (1) Morbid obesity Narrative/Plan: Patient doing well at this time. Add Toradol for pain control and minimize narcotic use. Continue bariatric liquids. Ambulate. Current Visit: No Status: Acute Code(s): E66.01 - MORBID (SEVERE) OBESITY DUE TO EXCESS CALORIES SNOMED Code(s): 746305888
[2019-11-24] MEDS: 1: MVI, ADULT NO.4 WITH VIT K 10 ML, THIAMINE 100 MG, FOLIC ACID 1 MG, POTASSIUM CHLORID IV SCH ×12 (16:57→19:18)
--- NOTE | 2019-11-24 21:28 | PN ---
PROGRESS NOTE DATE OF SERVICE: 11/24/2019 This is a 54-year-old woman who was admitted with morbid obesity, had laparoscopic sleeve gastrectomy. The patient being closely monitored. No chest pain. No palpitations. No fever. PHYSICAL EXAMINATION: Alert and oriented times three. Pulse is 89. Blood pressure 124/82, respiration 20, temperature 98.2, pulse ox 97% on room air. HEENT: Conjunctivae normal. NECK: No JVD. CARDIOVASCULAR: S1, S2 muffled. RESPIRATORY: Breath sounds diminished at the bases. No rhonchi. No crackles. ABDOMEN: Soft. Status post surgery. LEGS are no edema. No swelling. LABS: CO2 74. CBC within normal limits. ASSESSMENT: 1. Morbid obesity, status post laparoscopic sleeve gastrectomy. 2. History of hypertension. 3. History of hyperlipidemia. 4. History of migraine. 5. Chronic back pain. 6. Degenerative joint disease. 7. History of anxiety, depression. 8. Remote history of nicotine dependence. 9. Obesity with body mass index 41.6. 10.FULL CODE. RECOMMENDATIONS AND DISCUSSION: I recommend to continue current medications, symptomatic treatment. Otherwise at this time I recommend continue the rest of the medications. Incentive spirometry, DVT prophylaxis. I would also recommend repeat BMP in the morning. Otherwise, closely follow with Dr. Damon. Further recommendations to follow. MMODL / IJN: [id number] /
[2019-11-25] MEDS: 1: MVI, ADULT NO.4 WITH VIT K 10 ML, THIAMINE 100 MG, FOLIC ACID 1 MG, POTASSIUM CHLORID IV SCH ×12 (03:58→13:10)
[2019-11-25] MEDS: LACTATED RINGERS 1,000 ML IV SCH (03:58)
[2019-11-25] MEDS: KETOROLAC 15 MG/ML 1 ML VIAL IVP SCH ×2 (05:18→11:14)
[2019-11-25 07:20] VITALS: RESP 18
[2019-11-25] MEDS: ALBUTEROL NEBULIZED 2.5 MG/3 ML INHALATION SCH ×3 (07:26→12:01)
[2019-11-25] MEDS: PANTOPRAZOLE 40 MG/10 ML VIAL IV SCH (07:56)
[2019-11-25] MEDS ORDERED: bisacodyL 5 MG TABLET.DR PO PRN (08:00)
[2019-11-25 10:20] LABS: African American GFR (CKD) 119.8 (60.0-200.0); Anion Gap 11.1 mmol/L (4.00-12.00); BUN/Creat Ratio 21.67 Ratio (12.00-20.00); Calcium 8.9 mg/dL (8.7-10.3); Carbon Dioxide 18.9 mmol/L (21.6-31.8); Non-African American GFR(CKD) 103.3 (60.0-200.0); Potassium 4.1 mmol/L (3.5-5.5)
[2019-11-25] MEDS: ENOXAPARIN 40 MG/0.4 ML SYRINGE SQ SCH (11:14)
--- NOTE | 2019-11-25 12:09 | P.DS ---
Providers Date of admission: 11/23/19 09:57 Expected date of discharge: 11/25/19 Attending physician: Jarad Damon Consults: 11/23/19 14:27 Consult Physician Routine Consulting Provider: Cornelius Rob Consult Reason/Comments: Medical management Do you want consulting provider notified?: Yes Primary care physician: Pricilla Thomas - Discharge Diagnosis(es) (1) Morbid obesity Patient was admitted electively 2 days ago for elective sleeve gastrectomy. Surgery went without incident. Postop upper GI shows no evidence of leak or obstruction. Labs looked normal. She is tolerating liquids although the amount is difficult to quantify. She would like to go home today. We'll monitor her liquid intake throughout the day. If her fluid intake is adequate we'll di scharge later today. Follow up bariatric center in 1 week. Current Visit: No Status: Acute Plan - Discharge Summary Discharge Rx Participant: No New Discharge Prescriptions: No Action buPROPion XL [Wellbutrin XL] 300 mg PO DAILY Atorvastatin [Lipitor] 40 mg PO HS QUEtiapine XR [SEROquel XR] 150 mg PO HS hydroCHLOROthiazide 25 mg PO DAILY Acyclovir 400 mg PO DIRECTED Cholecalciferol (Vitamin D3) [Vitamin D3] 1,000 units PO DAILY Zinc 50 mg PO DAILY Multivitamins, Thera [Multivitamin (formulary)] 1 tab PO DAILY Ascorbic Acid [Vitamin C] 1,000 mg PO DAILY Acetaminophen-Codeine 300-30mg [Tylenol w/codeine #3] 1 tab PO DIRECTED PRN PRN Reason: Pain tiZANidine [Zanaflex] 4 mg PO Q8HR PRN PRN Reason: Muscle Spasm Magnesium 200 mg PO DAILY Aspirin [Adult Low Dose Aspirin EC] 81 mg PO DAILY Calcium Carbonate [Calcium] 600 mg PO DAILY Butalb/Acetaminophen/Caffeine [Fioricet 50-300-40 mg Capsule] 1 - 2 cap PO Q4HR PRN PRN Reason: migraines Vitamin E Acetate [Vitamin E] 200 unit PO DAILY Biotin 5 mg PO DAILY Discharge Medication List Acetaminophen-Codeine 300-30mg [Tylenol w/codeine #3] 1 tab PO DIRECTED PRN 09/14/19 [History] Acyclovir 400 mg PO DIRECTED 09/14/19 [History] Ascorbic Acid [Vitamin C] 1,000 mg PO DAILY 09/14/19 [History] Atorvastatin [Lipitor] 40 mg PO HS 09/14/19 [History] Cholecalciferol (Vitamin D3) [Vitamin D3] 1,000 units PO DAILY 09/14/19 [His tory] Multivitamins, Thera [Multivitamin (formulary)] 1 tab PO DAILY 09/14/19 [History] QUEtiapine XR [SEROquel XR] 150 mg PO HS 09/14/19 [History] Zinc 50 mg PO DAILY 09/14/19 [History] buPROPion XL [Wellbutrin XL] 300 mg PO DAILY 09/14/19 [History] hydroCHLOROthiazide 25 mg PO DAILY 09/14/19 [History] Aspirin [Adult Low Dose Aspirin EC] 81 mg PO DAILY 10/08/19 [History] Biotin 5 mg PO DAILY 10/08/19 [History] Butalb/Acetaminophen/Caffeine [Fioricet 50-300-40 mg Capsule] 1 - 2 cap PO Q4HR PRN 10/08/19 [History] Calcium Carbonate [Calcium] 600 mg PO DAILY 10/08/19 [History] Magnesium 200 mg PO DAILY 10/08/19 [History] Vitamin E Acetate [Vitamin E] 200 unit PO DAILY 10/08/19 [History] tiZANidine [Zanaflex] 4 mg PO Q8HR PRN 10/08/19 [History] [facility] [facility] [place] [place] [facility] - 12/01/19 2:30 pm
[2019-11-25] MEDS ORDERED: LIDOCAINE 1% INJ 10MG/ML (20 ML MDV) ONE (12:23)
[2019-11-25] MEDS ORDERED: PROPOFOL 10 MG/ML 20 ML VIAL IV ONE (12:23)
[2019-11-25] MEDS ORDERED: NEOSTIGMINE 1 MG/ML 10 ML VIAL ONE (12:23)
[2019-11-25] MEDS ORDERED: SUCCINYLCHOLINE CHLORIDE VIAL 200 MG/10 ML VIAL IV ONE (12:23)
[2019-11-25] MEDS ORDERED: PHENYLEPHRINE-0.9% NACL SYG 1 MG/10 ML SYRINGE ONE (12:23)
[2019-11-25] MEDS ORDERED: GLYCOPYRROLATE 0.2 MG/ML 2 ML VIAL ONE (12:23)
[2019-11-25] MEDS ORDERED: ROCURONIUM BROMIDE 10 MG/ML 5 ML VIAL IV ONE (12:23)
[2019-11-25] MEDS ORDERED: fentaNYL (PF) 50 MCG/ML 2 ML AMP ONE (12:23)
[2019-11-25] MEDS ORDERED: MIDAZOLAM 2 MG/2 ML VIAL ONE (12:23)
[2019-11-25] MEDS: ACETAMINOPHEN ORAL SUSP 160 MG/5 ML CUP PO PRN (13:12)
[2019-11-25 15:54] VITALS: BP 138/74; PULSE 98; TEMP 98.5
--- NOTE | 2019-11-25 19:30 | PN ---
PROGRESS NOTE DATE OF SERVICE: 11/25/2019 This 54-year-old woman who was admitted after laparoscopic sleeve gastrectomy is improving significantly. No chest pain. No palpitations. No fever. PHYSICAL EXAMINATION: Alert and oriented x3. Pulse 98, blood pressure 130/74, respiration 18, temperature 98.4, pulse ox 100% on room air. HEENT: Conjunctivae normal. NECK: No jugular venous distention. CARDIOVASCULAR SYSTEM: S1, S2 muffled. RESPIRATORY SYSTEM: Breath sounds diminished at the bases. No rhonchi. No crackles. ABDOMEN: Soft. Status post surgery. LEGS: No edema. No swelling. NERVOUS SYSTEM: No focal deficit. LABS: CBC within normal limits. BMP noted. ASSESSMENT: 1. Morbid obesity, status post laparoscopic sleeve gastrectomy. 2. History of hypertension. 3. History of hyperlipidemia. 4. History of migraine. 5. Chronic back pain. 6. Degenerative joint disease. 7. History of anxiety, depression. 8. Remote history of nicotine dependence. 9. Obesity with body mass index of 41.6. 10.FULL CODE. RECOMMENDATIONS AND DISCUSSION: I recommend to continue current medications, continue with the monitoring, symptomatic treatment. Otherwise, incentive spirometry. DVT prophylaxis. Surgery is planning for discharge and I would recommend resuming the home medications. Follow with Dr. Pricilla Thomas. The rest of the recommendations per Surgery. Further recommendations to follow. MMODL / IJN: [id number] /
== END 2019-11-25 16:09 | disposition home or self-care (01) | DRG 621 ==
LOC: 2ORMAIN 09:57 → 4SSUR 16:21
PROVIDERS: ADMIT Surgery; ATTEND Surgery
PROC: 0DB64Z3 Excision of Stomach, Percutaneous Endoscopic Approach, Vertical (ICD-10-PCS; principal; 2019-11-23 11:15)
DX: E66.01 Morbid (severe) obesity due to excess calories (principal); Z68.41 Body mass index [BMI] 40.0-44.9, adult; I10 Essential (primary) hypertension; E78.00 Pure hypercholesterolemia, unspecified; K44.9 Diaphragmatic hernia without obstruction or gangrene; K29.70 Gastritis, unspecified, without bleeding; G89.29 Other chronic pain; M54.9 Dorsalgia, unspecified; G43.909 Migraine, unspecified, not intractable, without status migrainosus; E78.5 Hyperlipidemia, unspecified; F41.9 Anxiety disorder, unspecified; F32.9 Major depressive disorder, single episode, unspecified; M19.90 Unspecified osteoarthritis, unspecified site; R11.0 Nausea; Z71.3 Dietary counseling and surveillance; Z87.891 Personal history of nicotine dependence; Z79.899 Other long term (current) drug therapy; Z79.82 Long term (current) use of aspirin; Z98.51 Tubal ligation status; Z98.890 Other specified postprocedural states
CPT/HCPCS: 36415; 74240; 80048; 80051; 82310; 82565; 83735; 84100; 84520; 85025; 86850; 86900; 86901; 88307; 94640; 94760; 94762

== ENCOUNTER → 2019-12-01 | Outpatient (CLI) | payer MEDICARE, OTHER ==
[2019-12-01 14:48] VITALS: BP 142/96; PULSE 94; RESP 16; TEMP 97.8; BMI 41.4
--- NOTE | 2019-12-01 16:21 | P.BASOAP ---
Subjective Progress Note Date: 12/01/19 Principal diagnosis: Morbid obesity Patient returns for bariatric evaluation. Underwent sleeve gastrectomy 11/22. Doing well. No pain. Tolerating liquids. Just starting her protein supplementation. No fevers. Heart rate 94. Has had vomiting on 2 occasions right after discharge. Had acid reflux once earlier today. Objective - Vital Signs Vital signs: Vital Signs Temp 97.8 F 12/01/19 14:45 Pulse 94 12/01/19 14:45 Resp 16 12/01/19 14:45 BP 142/96 12/01/19 14:45 Pulse Ox Intake & Output 11/30/19 12/01/19 12/01/19 18:59 06:59 18:59 Weight 112.945 kg - Exam Abdomen: Soft, nondistended, incisions clean and dry Assessment/Plan (1) Morbid obesity Narrative/Plan: Patient doing well at this time. Continue postoperative bariatric diet. Gradually advanced activity level. Return to work 12/20. Return visit 4-6 weeks. Continue antiacids. Plan: Date: 12/01/19 Initial Weight: 118.388 kg Initial BMI: 43.4 Current Weight: 112.945 kg Current BMI: 41.4 Type of Surgery: Vertical Sleeve Gastrectomy Total Volume in Band: Previous Volume: Volume Removed: Volume Added: Band Size:
== END | disposition home or self-care (01) ==
LOC: BARWHC3 14:26
PROVIDERS: ATTEND Surgery
DX: Z48.815 Encounter for surgical aftercare following surgery on the digestive system (principal); E66.01 Morbid (severe) obesity due to excess calories; Z68.41 Body mass index [BMI] 40.0-44.9, adult; Z98.84 Bariatric surgery status
CPT/HCPCS: 99211

== ENCOUNTER → 2019-12-22 | Outpatient (CLI) | payer MEDICARE, OTHER ==
[2019-12-22 14:55] VITALS: BP 139/94; PULSE 97; TEMP 98.2; BMI 38.7
[2019-12-22 16:01] LABS: HCT 43.8 % (34.0-46.0); HGB 13.6 gm/dL (11.4-16.0); MCH 27.2 pg (25.0-35.0); MCHC 31.2 g/dL (31.0-37.0); MCV 87.3 fL (80.0-100.0); Platelet Count 257 k/uL (150-450); RBC 5.01 m/uL (3.80-5.40); RDW 13.8 % (11.5-15.5); WBC 5.3 k/uL (3.8-10.6)
--- NOTE | 2019-12-22 16:33 | P.BASOAP ---
Subjective Progress Note Date: 12/22/19 Principal diagnosis: Morbid obesity Patient returns today for evaluation. Last seen 11/30. Good weight loss since last visit 16 pounds. Doing better with her protein and liquid intake. Apparently she never did make her appointment to see her primary care physician. She states would be doing that now. Denies reflux. No nausea or vomiting. Taking multivitamins and calcium. She is due for one month labs. Objective - Vital Signs Vital signs: Vital Signs Temp 98.2 F 12/22/19 14:50 Pulse 97 12/22/19 14:50 Resp BP 139/94 12/22/19 14:50 Pulse Ox Intake & Output 12/21/19 12/22/19 12/22/19 18:59 06:59 18:59 Weight 105.687 kg - Exam Abdomen: Soft, nondistended, incision clean and dry - Labs CBC & Chem 7: 12/22/19 15:37 Assessment/Plan (1) Morbid obesity Narrative/Plan: Patient doing well at this time. Check one month labs. May return to work 12/22 without restrictions. Follow up for 6 weeks. Plan: Date: 12/22/19 Initial Weight: 118.388 kg Initial BMI: 43.4 Current Weight: 105.687 kg Current BMI: 38.7 Type of Surgery: Total Volume in Band: Previous Volume: Volume Removed: Volume Added: Band Size:
[2019-12-23 04:32] LABS: Albumin 4.5 g/dL (3.80-4.90); Albumin/Globulin Ratio 2.25 (1.60-3.17); Anion Gap 12.3 mmol/L (4.00-12.00); BUN/Creat Ratio 23.33 Ratio (12.00-20.00); Calcium 10.1 mg/dL (8.7-10.3); Carbon Dioxide 25.7 mmol/L (21.6-31.8); Non-African American GFR(CKD) 72.5 (60.0-200.0); Potassium 3.6 mmol/L (3.5-5.5); Total Bilirubin 0.2 mg/dL (0.3-1.2); Total Protein 6.5 g/dL (6.2-8.2)
[2019-12-23 04:43] LABS: Folate, Serum 18.5 ng/mL
== END | disposition home or self-care (01) ==
LOC: BARWHC3 14:26
PROVIDERS: ATTEND Surgery
DX: E66.01 Morbid (severe) obesity due to excess calories (principal); Z68.38 Body mass index [BMI] 38.0-38.9, adult
CPT/HCPCS: 84425; 80053; 82607; 82746; 83540; 85027; 82306; G0463; 99211

== ENCOUNTER → 2020-01-26 | Outpatient (CLI) | payer MEDICARE, OTHER ==
[2020-01-26 13:53] VITALS: BP 126/94; PULSE 82; RESP 16; TEMP 98; BMI 36.6
--- NOTE | 2020-01-26 17:25 | P.BASOAP ---
Subjective Progress Note Date: 01/26/20 Principal diagnosis: Morbid obesity Patient returns for reevaluation. Last seen on 12/21. Since that time patient has lost 13 pounds. Recent labs showed slightly low iron level at 49. Patient is now taking vitamin C, vitamin D, zinc, multivitamins, and iron supplementation. Patient doing well. No nausea or vomiting. Minimal heartburn symptoms. Objective - Vital Signs Vital signs: Vital Signs Temp 98 F 01/26/20 13:49 Pulse 82 01/26/20 13:49 Resp 16 01/26/20 13:49 BP 126/94 01/26/20 13:49 Pulse Ox Intake & Output 01/25/20 01/26/20 01/26/20 18:59 06:59 18:59 Weight 99.79 kg - Exam Abdomen: Soft, nontender, nondistended Assessment/Plan (1) Morbid obesity Narrative/Plan: Patient doing well at this time. Continue dietary next size regimen. Patient will increase her exercise level. Patient will see dietary next visit. Check three-month labs next visit. Follow-up 4-6 weeks. Plan: Date: 01/26/20 Initial Weight: 118.388 kg Initial BMI: 43.4 Current Weight: 99.79 kg Current BMI: 36.6 Type of Surgery: Total Volume in Band: Previous Volume: Volume Removed: Volume Added: Band Size:
== END | disposition home or self-care (01) ==
LOC: BARWHC3 13:32
PROVIDERS: ATTEND Surgery
DX: E66.01 Morbid (severe) obesity due to excess calories (principal); Z68.36 Body mass index [BMI] 36.0-36.9, adult
CPT/HCPCS: 99211

== ENCOUNTER → 2020-01-26 | Outpatient (CLI) | payer MEDICARE, OTHER ==
--- NOTE | 2020-01-27 13:38 | MM ---
Reason for exam: screening (asymptomatic). Last mammogram was performed 1 year and 5 months ago. History: Patient is postmenopausal. Benign US biopsy breast VAD RT of the right breast, July 17, 2013. Physical Findings: A clinical breast exam by your physician is recommended on an annual basis and results should be correlated with mammographic findings. MG 3D Screening Mammo W/Cad Bilateral CC and MLO view(s) were taken. Prior study comparison: September 03, 2018, bilateral MG 3d diag mammo w/cad [facility]. April 23, 2017, bilateral MG 3d diag mammo w/cad [facility]. There are scattered fibroglandular densities. Previous mammotome biopsy in the right breast. There is chronic nodularity bilaterally. No significant changes when compared with prior studies. ASSESSMENT: Benign, BI-RAD 2 RECOMMENDATION: Routine screening mammogram of both breasts in 1 year.
== END | disposition home or self-care (01) ==
LOC: RADMAMWWP 14:22
PROVIDERS: ATTEND Family Medicine
DX: Z12.31 Encounter for screening mammogram for malignant neoplasm of breast (principal)
CPT/HCPCS: 77063; 77067

== ENCOUNTER → 2020-03-10 | Outpatient (CLI) | payer MEDICARE, OTHER ==
[2020-03-10 15:06] VITALS: BP 149/101; PULSE 80; RESP 16; TEMP 98; BMI 34.6
[2020-03-10 16:38] LABS: HCT 38.9 % (34.0-46.0); HGB 12.7 gm/dL (11.4-16.0); MCHC 32.7 g/dL (31.0-37.0); MCV 85.7 fL (80.0-100.0); Mean Platelet Volume 8.3; Platelet Count 236 k/uL (150-450); RBC 4.54 m/uL (3.80-5.40); RDW 14.7 % (11.5-15.5); WBC 4.7 k/uL (3.8-10.6)
--- NOTE | 2020-03-10 17:29 | P.BASOAP ---
Subjective Progress Note Date: 03/10/20 Principal diagnosis: Morbid obesity Patient returns for reevaluation. She has lost 14 pounds since her last visit. Doing well. Denies heartburn. Regurgitation on 2 separate occasions. No vomiting. No pain. Does not take antiacid therapy. She is due for 3 month labs. She has been increasing her activity by working as a [employer] employee. Objective - Vital Signs Vital signs: Vital Signs Temp 98 F 03/10/20 15:04 Pulse 80 03/10/20 15:04 Resp 16 03/10/20 15:04 BP 149/101 03/10/20 15:04 Pulse Ox Intake & Output 03/09/20 03/10/20 03/10/20 18:59 06:59 18:59 Weight 94.347 kg - Exam Abdomen: Soft, nontender, nondistended - Labs CBC & Chem 7: 03/10/20 16:09 Assessment/Plan (1) Morbid obesity Narrative/Plan: Patient doing well at this time. Continue dietary and exercise regimen. Return visit 6 weeks. Check three-month labs at this time. Plan: Date: 03/10/20 Initial Weight: 118.388 kg Initial BMI: 43.4 Current Weight: 94.347 kg Current BMI: 34.6 Type of Surgery: Total Volume in Band: Previous Volume: Volume Removed: Volume Added: Band Size:
[2020-03-11 03:38] LABS: African American GFR (CKD) 96.2 (60.0-200.0); Albumin 4.3 g/dL (3.80-4.90); Albumin/Globulin Ratio 2.39 (1.60-3.17); Anion Gap 11.3 mmol/L (4.00-12.00); Carbon Dioxide 23.7 mmol/L (21.6-31.8); Folate, Serum 18.6 ng/mL; Globulin 1.8 g/dL (1.6-3.3); Potassium 4.1 mmol/L (3.5-5.5); Total Bilirubin 0.2 mg/dL (0.2-1.2); Total Protein 6.1 g/dL (6.2-8.2)
== END | disposition home or self-care (01) ==
LOC: BARWHC3 14:32
PROVIDERS: ATTEND Surgery
DX: E66.01 Morbid (severe) obesity due to excess calories (principal); Z68.34 Body mass index [BMI] 34.0-34.9, adult; K90.89 Other intestinal malabsorption; E55.9 Vitamin D deficiency, unspecified
CPT/HCPCS: 84425; 80053; 82607; 82746; 83540; 85027; 82306; 36415; G0463; 99211

== ENCOUNTER → 2020-05-05 | Outpatient (CLI) | payer MEDICARE, OTHER ==
[2020-05-05 14:05] VITALS: BP 144/85; PULSE 80; TEMP 98; BMI 32.5
--- NOTE | 2020-05-05 15:31 | P.BASOAP ---
Subjective Progress Note Date: 05/05/20 Principal diagnosis: Morbid obesity Patient doing well since last visit. She has lost an additional 12 pounds in the last 6-8 weeks. No heartburn. Rarely takes antacids. Some infrequent stools although she is not straining. Recently started an antihypertensive. Patient denies pain. Objective - Vital Signs Vital signs: Vital Signs Temp 98 F 05/05/20 14:01 Pulse 80 05/05/20 14:01 Resp BP 144/85 05/05/20 14:01 Pulse Ox Intake & Output 05/04/20 05/05/20 05/05/20 18:59 06:59 18:59 Weight 88.904 kg - Exam Physical exam: General: Well-developed, well-nourished HEENT: Normocephalic, sclerae nonicteric Abdomen: Nontender, nondistended Extremities: No edema Neuro: Alert and oriented Assessment/Plan (1) Morbid obesity Narrative/Plan: Patient doing well post sleeve gastrectomy. Continue dietary and exercise regimen. We'll check labs next visit. Follow-up 6-8 weeks. Plan: Date: 05/05/20 Initial Weight: 118.388 kg Initial BMI: 43.4 Current Weight: 88.904 kg Current BMI: 32.5 Type of Surgery: Total Volume in Band: Previous Volume: Volume Removed: Volume Added: Band Size:
== END ==
LOC: BARWHC3 13:44
PROVIDERS: ATTEND Surgery
DX: E66.01 Morbid (severe) obesity due to excess calories (principal); Z68.32 Body mass index [BMI] 32.0-32.9, adult
CPT/HCPCS: 99211

== ENCOUNTER → 2020-07-07 | Outpatient (CLI) | payer MEDICARE, OTHER ==
--- NOTE | 2020-07-07 15:14 | P.BASOAP ---
Subjective Progress Note Date: 07/07/20 Principal diagnosis: Morbid obesity Patient returns for evaluation. Last seen 05/05. Doing well. She has lost 14 more pounds. She's did start her blood pressure medications. Blood pressure today is improved. Mild constipation at times. Mild heartburn as well. Takes antacids intermittently. No vomiting. No pain. Objective - Exam Abdomen: Soft, nontender, nondistended Assessment/Plan (1) Morbid obesity Narrative/Plan: Patient doing well at this time. Continue dietary and exercise regimen. Continue intermittent antiacid therapy. Continue stool softeners and increase fiber intake. Follow-up visit 6-8 weeks. Plan: Date: Initial Weight: 118.388 kg Initial BMI: Current Weight: Current BMI: Type of Surgery: Total Volume in Band: Previous Volume: Volume Removed: Volume Added: Band Size:
[2020-07-07 15:22] VITALS: BP 121/82; PULSE 74; TEMP 98.1; BMI 30.2
== END ==
LOC: BARWHC3 13:45
PROVIDERS: ATTEND Surgery
DX: E66.01 Morbid (severe) obesity due to excess calories (principal); Z68.30 Body mass index [BMI] 30.0-30.9, adult
CPT/HCPCS: 99211

== ENCOUNTER → 2020-09-20 | Outpatient (CLI) | payer MEDICARE, OTHER ==
[2020-09-20 14:20] VITALS: BP 136/88; PULSE 90; TEMP 98; BMI 27.4
--- NOTE | 2020-09-20 14:31 | P.BASOAP ---
Subjective Progress Note Date: 09/20/20 Principal diagnosis: Morbid obesity Patient returns for reevaluation. Doing well since last visit. Constipation has improved. Has occasional episodes of reflux. Yesterday evening had reflux after drinking a protein drink. She has lost 17 pounds since last visit. Feels tired at times. She is quite busy taking care of her mom, working, and going to classes. Objective - Vital Signs Vital signs: Vital Signs Temp 98 F 09/20/20 14:17 Pulse 90 09/20/20 14:17 Resp BP 136/88 09/20/20 14:17 Pulse Ox Intake & Output 09/19/20 09/20/20 09/20/20 18:59 06:59 18:59 Weight 74.843 kg - Exam Abdomen: Soft, nontender, nondistended Assessment/Plan (1) Morbid obesity Narrative/Plan: Patient doing well at this time. Continue dietary and exercise regimen. Continuing as needed antiacid therapy. Follow-up 2 months. Check annual labs at that time. Plan: Date: 09/20/20 Initial Weight: 118.388 kg Initial BMI: 43.4 Current Weight: 74.843 kg Current BMI: 27.4 Type of Surgery: Total Volume in Band: Previous Volume: Volume Removed: Volume Added: Band Size:
== END | disposition home or self-care (01) ==
LOC: BARWHC3 13:47
PROVIDERS: ATTEND Surgery
DX: E66.01 Morbid (severe) obesity due to excess calories (principal); Z71.3 Dietary counseling and surveillance; Z68.27 Body mass index [BMI] 27.0-27.9, adult
CPT/HCPCS: 99211

== ENCOUNTER → 2021-01-17 | Outpatient (CLI) | payer MEDICARE, OTHER ==
[2021-01-17 13:18] VITALS: BP 145/103; PULSE 89; RESP 18; TEMP 98; BMI 24.9
--- NOTE | 2021-01-17 13:55 | P.BASOAP ---
Subjective Progress Note Date: 01/17/21 Principal diagnosis: Morbid obesity Patient returns for evaluation. She was last seen and August. Her mother that she was caring for his become more confused. She is now living at her aunt's house. She has lost 16 pounds since her last visit. She admits that she has been utilizing marijuana and sometimes seems to be using it as a appetite improve her. She is due for 1 labs. Constipation and fatigue are improved. Objective - Vital Signs Vital signs: Vital Signs Temp 98 F 01/17/21 13:13 Pulse 89 01/17/21 13:13 Resp 18 01/17/21 13:13 BP 145/103 01/17/21 13:13 Pulse Ox Intake & Output 01/16/21 01/17/21 01/17/21 18:59 06:59 18:59 Weight 67.993 kg - Exam Abdomen: Soft, nontender, nondistended Assessment/Plan (1) Morbid obesity Narrative/Plan: Patient doing well at this time. Continue dietary and exercise regimen. Check 1 year labs. Patient will try to stop utilizing marijuana at this time. Follow-up 6 months. Plan: Date: 01/17/21 Initial Weight: 118.388 kg Initial BMI: 43.4 Current Weight: 67.993 kg Current BMI: 24.9 Type of Surgery: Total Volume in Band: Previous Volume: Volume Removed: Volume Added: Band Size:
[2021-01-17 15:03] LABS: HCT 39.5 % (34.0-46.0); HGB 12.7 gm/dL (11.4-16.0); MCH 29.1 pg (25.0-35.0); MCHC 32.2 g/dL (31.0-37.0); MCV 90.4 fL (80.0-100.0); Mean Platelet Volume 7.7; Platelet Count 261 k/uL (150-450); RBC 4.37 m/uL (3.80-5.40); RDW 13.3 % (11.5-15.5); WBC 5.5 k/uL (3.8-10.6)
[2021-01-18 00:36] LABS: ALT 17 U/L (8-44); AST 12 U/L (13-35); African American GFR (CKD) 88.4 (60.0-200.0); Albumin 4.1 g/dL (3.8-4.9); Albumin/Globulin Ratio 2.02 (1.60-3.17); Alkaline Phosphatase 108 U/L (41-126); BUN/Creat Ratio 17.13 Ratio (12.00-20.00); Blood Urea Nitrogen 14.7 mg/dL (9.0-27.0); Calcium 10.1 mg/dL (8.7-10.3); Carbon Dioxide 26.2 mmol/L (20.0-27.5); Chloride 106 mmol/L (96-109); Glucose 82 mg/dL (70-110); Iron 104 ug/dL (50-170); Non-African American GFR(CKD) 76.3 (60.0-200.0); Potassium 4.3 mmol/L (3.5-5.5); Sodium 143 mmol/L (135-145); Total Protein 6.2 g/dL (6.2-8.2)
[2021-01-18 01:51] LABS: Folate, Serum >20.00 ng/mL (4.40-31.00)
== END ==
LOC: BARWHC3 13:00
PROVIDERS: ATTEND Surgery
DX: E66.01 Morbid (severe) obesity due to excess calories (principal); Z68.24 Body mass index [BMI] 24.0-24.9, adult
CPT/HCPCS: 84425; 80053; 82607; 82746; 83540; 85027; 82306; 36415; G0463; 99211

== ENCOUNTER → 2021-03-16 | Outpatient (CLI) | payer MEDICARE, OTHER ==
--- NOTE | 2021-03-16 14:48 | MM ---
Reason for exam: screening (asymptomatic). Last mammogram was performed 1 year and 2 months ago. History: Patient is postmenopausal. Benign US biopsy breast VAD RT of the right breast, July 17, 2013. Physical Findings: A clinical breast exam by your physician is recommended on an annual basis and results should be correlated with mammographic findings. MG 3D Screening Mammo W/Cad Bilateral CC and MLO view(s) were taken. Prior study comparison: January 26, 2020, bilateral MG 3d screening mammo w/cad. September 03, 2018, bilateral MG 3d diag mammo w/cad [facility]. The breast tissue is heterogeneously dense. This may lower the sensitivity of mammography. There are benign appearing round calcifications bilaterally. Previous mammotome biopsy in the right breast. There is chronic nodularity bilaterally. There is no discrete abnormality. ASSESSMENT: Benign, BI-RAD 2 RECOMMENDATION: Routine screening mammogram of both breasts in 1 year.
== END | disposition home or self-care (01) ==
LOC: RADMAMWWP 09:27
PROVIDERS: ATTEND Family Medicine
DX: Z12.31 Encounter for screening mammogram for malignant neoplasm of breast (principal); Z78.0 Asymptomatic menopausal state
CPT/HCPCS: 77063; 77067

== ENCOUNTER → 2021-08-17 | Outpatient (CLI) | payer MEDICARE, OTHER ==
[2021-08-17 18:37] LABS: HCT 40.3 % (37.2-46.3); HGB 12.7 g/dL (12.0-15.0); MCH 27.4 pg (27.0-32.0); MCHC 31.5 g/dL (32.0-37.0); Mean Platelet Volume 10.9 fL (9.5-12.2); NRBC Per 100 WBC 0 /100 WBCS (0.0-0.0); Platelet Count 257 X 10*3/uL (140-440); RBC 4.63 X 10*6/uL (4.10-5.20); RDW 12.9 % (11.5-14.5); WBC 4.44 X 10*3/uL (4.50-10.00)
[2021-08-17 19:06] LABS: ALT 25 U/L (8-44); AST 19 U/L (13-35); African American GFR (CKD) 82.8 (60.0-200.0); Albumin 4.4 g/dL (3.8-4.9); Alkaline Phosphatase 85 U/L (41-126); BUN/Creat Ratio 19.56 Ratio (12.00-20.00); Blood Urea Nitrogen 17.6 mg/dL (9.0-27.0); Calcium 9.8 mg/dL (8.7-10.3); Carbon Dioxide 27.7 mmol/L (20.0-27.5); Chloride 105 mmol/L (96-109); Globulin 2.1 g/dL (1.6-3.3); Glucose 88 mg/dL (70-110); Iron 85 ug/dL (50-170); Non-African American GFR(CKD) 71.5 (60.0-200.0); Potassium 3.8 mmol/L (3.5-5.5); Sodium 142 mmol/L (135-145); Total Bilirubin <0.15 mg/dL (0.30-1.20); Total Protein 6.5 g/dL (6.2-8.2)
== END | disposition home or self-care (01) ==
LOC: LABWHC1 14:03
PROVIDERS: ATTEND Surgery
DX: K90.89 Other intestinal malabsorption (principal); E66.01 Morbid (severe) obesity due to excess calories; E55.9 Vitamin D deficiency, unspecified
CPT/HCPCS: 36415; 80053; 82306; 82607; 82746; 83540; 84425; 85027

== ENCOUNTER 2022-12-11 08:57 | Day surgery (SDC) | payer MEDICARE, OTHER ==
[2022-12-04 10:52] VITALS: BMI 20.7
[~2022-12-11 08:57] MED LIST changes: -ACETAMINOPHEN TAB 500 MG TAB PO ONE; -DEXAMETHASONE SOD PHOSPHATE 10 MG/ML 1 ML VIAL IV ONE; -ENOXAPARIN 40 MG/0.4 ML SYRINGE SQ ONE; +LACTATED RINGERS 1,000 ML IV SCH; +LIDOCAINE 1% (10MG/ML) FOR IV START INTRADERMA PRN; -ONDANSETRON 4 MG/2 ML VIAL IVP ONE; -SCOPOLAMINE 1.5MG/72HR PATCH TRANSDERM ONE; -ceFAZolin 3 GM in SODIUM CHLORIDE 0.9% 100 ML IVPB ONE
[2022-12-11 09:42] VITALS: RESP 16; TEMP 97.3
[2022-12-11] MEDS ORDERED: fentaNYL (PF) 50 MCG/ML 2 ML AMP ONE (09:56)
[2022-12-11] MEDS ORDERED: PROPOFOL 10 MG/ML 20 ML VIAL IV ONE (09:56)
--- NOTE | 2022-12-11 10:00 | P.GSHP ---
History of Present Illness H&P Date: 12/11/22 Chief Complaint: Blood in stool 57-year-old female here for colonoscopy. Last colonoscopy 10 years ago. She had a stool test that showed blood about a year ago. She does not see any rectal bleeding or melena. No family history of colon cancer. Past Medical History Past Medical History: Hyperlipidemia, Hypertension Additional Past Medical History / Comment(s): hx migraines, states chronic back pain History of Any Multi-Drug Resistant Organisms: None Reported Past Surgical History: Bariatric Surgery, Tubal Ligation Additional Past Surgical History / Comment(s): FIBROID SURGERY, EGD SLEEVE GASTRECTOMY 11-23-19, colonoscopy Past Anesthesia/Blood Transfusion Reactions: No Reported Reaction Smoking Status: Former smoker - Past Family History Father Family Medical History: No Reported History Medications and Allergies Home Medications Medication Instructions Recorded Confirmed Type Acetaminophen-Codeine 300-30mg 1 tab PO DIRECTED PRN 09/14/19 12/11/22 History [Tylenol w/codeine #3] Acyclovir 400 mg PO DIRECTED 09/14/19 12/11/22 History QUEtiapine XR [SEROquel XR] 300 mg PO HS 09/14/19 12/11/22 History Butalb/Acetaminophen/Caffeine 1 - 2 cap PO Q4HR PRN 10/08/19 12/11/22 History [Fioricet 50-300-40 mg Capsule] tiZANidine [Zanaflex] 4 mg PO Q8HR PRN 10/08/19 12/11/22 History amLODIPine [Norvasc] 5 mg PO DAILY 07/08/20 12/11/22 History Calcium Citrate 1,200 mg PO DAILY 09/20/20 12/11/22 History Cholecalciferol [Vitamin D3 (25 500 mg PO DAILY 09/20/20 12/11/22 History Mcg = 1000 Iu)] Multivitamins, Thera [Multivitamin 1 tab PO DAILY 09/20/20 12/11/22 History (formulary)] Allergies Allergy/AdvReac Type Severity Reaction Status Date / Time No Known Allergies Allergy Verified 12/11/22 09:27 Surgical - Exam Vital Signs Temp Pulse Resp BP Pulse Ox 97.3 F L 79 16 173/85 100 12/11/22 09:30 12/11/22 09:30 12/11/22 09:30 12/11/22 09:30 12/11/22 09:30 Physical exam: General: Well-developed, well-nourished HEENT: Normocephalic, sclerae nonicteric Abdomen: Nontender, nondistended Extremities: No edema Neuro: Alert and oriented Assessment and Plan (1) Blood in stool Narrative/Plan: Will proceed with colonoscopy at this time Current Visit: Yes Status: Acute Code(s): K92.1 - MELENA SNOMED Code(s): 503605314
--- NOTE | 2022-12-11 10:19 | P.PCN ---
Date of Procedure: 12/11/22 Procedure(s) Performed: PREOPERATIVE DIAGNOSIS: Blood in stool POSTOPERATIVE DIAGNOSIS: Diverticulosis, sigmoid colon polyp PROCEDURE: Colonoscopy with snare polypectomy ANESTHESIA: MAC SURGEON: Jarad Damon M.D. SPECIMENS: Polyp ENDOSCOPIC PROCEDURE: The patient was placed on the endoscopy table in the left decubitus position. The Olympus colonoscope was inserted into the anus and passed under direct visualization to the base of the cecum. The appendiceal orifice was visualized. From that point the scope was slowly withdrawn inspecting all surfaces carefully. There were no neoplastic inflammatory or polypoid lesions throughout the cecum, ascending, transverse, or descending colon. In the sigmoid colon a small polyp was seen and removed using the snare cautery technique. The remainder of the sigmoid and rectum was normal. There was mild diverticulosis in the left colon. Digital rectal examination was normal. The patient was taken to the recovery room in stable condition per anesthesia guidelines. RECOMMENDATIONS: Await biopsy results. Repeat colonoscopy pending pathology.
[2022-12-11] MEDS ORDERED: IV FLUID CONTINUATION 1,000 ML IV ONE (10:20)
[2022-12-11 10:57] VITALS: BP 161/97; PULSE 65
== END 2022-12-11 11:03 | disposition home or self-care (01) ==
LOC: ORWHC2ENDO 08:57
PROVIDERS: ATTEND Surgery
DX: D12.5 Benign neoplasm of sigmoid colon (principal); K57.30 Diverticulosis of large intestine without perforation or abscess without bleeding; E78.5 Hyperlipidemia, unspecified; I10 Essential (primary) hypertension; F41.9 Anxiety disorder, unspecified; F32.A Depression, unspecified; G43.909 Migraine, unspecified, not intractable, without status migrainosus; Z87.891 Personal history of nicotine dependence; Z98.84 Bariatric surgery status; Z79.899 Other long term (current) drug therapy
CPT/HCPCS: 88305; 45385; J3010; J2704

== ENCOUNTER → 2023-02-27 | Outpatient (CLI) | payer MEDICARE, OTHER ==
--- NOTE | 2023-02-27 18:28 | CTL ---
EXAMINATION TYPE: CT Low Dose Lung DATE OF EXAM: 02/27/2023 4:51 PM CLINICAL INDICATION:Female, 58 years old with history of Z12.2ENCNTR SCREEN FOR MALIGNANT NEOPLASM F 17.210; Current every day smoker, 1 pack a day x 20 years. , history of tobacco use. COMPARISON: CT chest 04/30/2019. TECHNIQUE: Multiple axial non-contrast scans were obtained from approximately the lung apices through the upper abdomen. Coronal and sagittal reformatted images were obtained. Low dose technique was uti lized. CT DLP: 46.5 mGycm, Automated exposure control for dose reduction was used. CT Contrast: Contrast used: None Oral contrast used: None FINDINGS: ======== Lack of intravenous contrast and low dose technique limits the evaluation of the vascular and soft ti ssue structures. LUNGS: No evidence of pulmonary fibrosis. No evidence of focal consolidation, pneumothorax or pleural effusion. Pleural-based scarring is noted in the lung apices. Nodules: RUL: None. RML: None. RLL: None. LEONID: None. LLL: None. AIRWAY: Patent and unremarkable. HEART: Size within normal limits. MEDIASTINUM: No gross evidence of adenopathy. VASCULATURE: No aortic aneurysm. MUSCULOSKELETAL: Mild disc degeneration changes are present throughout the thoracolumbar spine. SOFT TISSUES/LYMPH NODES: Unremarkable. LOWER NECK: No significant findings. UPPER ABDOMEN: Postsurgical changes of the stomach are identified. IMPRESSION: 1. No clinically significant pulmonary nodules. CT LUNG RAD AND CT CHEST RECOMMENDATION: Lung-Rad 1 Negative: Continue annual screening with LDCT in 12 months. S Modifier (other clinically significant findings): None Recommend smoking cessation (if current smoker), or continuation of smoking cessation (if prior smoke r). Annual screening for lung cancer with low-dose computed tomography is recommended in adults ages 55 to 77 years who have a 30 pack-year smoking history and currently smoke or have quit within the pa st 15 years. Screening should be discontinued once a person has not smoked for 15 years or develops a health problem that substantially limits life expectancy or the ability or willingness to have curat alvina lung surgery.
== END | disposition home or self-care (01) ==
LOC: RADCTMAIN 16:33
PROVIDERS: ATTEND Family Medicine
DX: Z12.2 Encounter for screening for malignant neoplasm of respiratory organs (principal); F17.210 Nicotine dependence, cigarettes, uncomplicated
CPT/HCPCS: 71271

== ENCOUNTER → 2023-03-19 | Outpatient (CLI) | payer MEDICARE, OTHER ==
--- NOTE | 2023-03-19 13:15 | US ---
EXAMINATION TYPE: US thyroid st tissue head/neck DATE OF EXAM: 03/19/2023 COMPARISON: NONE CLINICAL INDICATION: Female, 58 years old with history of R22.1 LOCALIZED SWELLING, MASS AND LUMP, NE CK; palpable on right submandibular region for 3 months, no pain, no change in size, no recent infect ions TECHNIQUE: Soft tissue neck US in the area of palpable abnormality of the right neck FINDINGS: Normal appearing lymph node seen measuring 0.8 x 0.8 x 0.4cm IMPRESSION: Normal-appearing right neck lymph node in the area of palpable abnormality.
== END | disposition home or self-care (01) ==
LOC: RADUSWWP 12:22
PROVIDERS: ATTEND Family Medicine
DX: R22.1 Localized swelling, mass and lump, neck (principal)
CPT/HCPCS: 76536

== ENCOUNTER → 2023-04-09 | Outpatient (CLI) | payer MEDICARE, OTHER ==
[2023-04-09 14:03] VITALS: BP 148/119; PULSE 96; TEMP 98
--- NOTE | 2023-04-09 16:04 | P.BASOAP ---
Subjective Progress Note Date: 04/09/23 Principal diagnosis: Morbid obesity Patient returns for recheck. Last seen over a year ago. She has lost 21 pounds since her last visit. Current weight 121 BMI 20. She gained a pound or 2 recently. Says she has a decent appetite. She says she cannot eat a large volume at 1 time but seems to be doing better with multiple small meals throughout the day. Patient states that only recently has she tried actually putting weight back on. She agrees she would like to see her weight in the 1 25-1 30 range. Patient was previously using THC as an appetite motivator but had to stop this for work reasons. She is back to her high school weight currently. Patient states she had lab work by her primary care physician recently. She started taking her vitamins again recently. Has had some burning abdominal pain. Does not take antiacids. The burning pain started about 3 days ago. Better today. No significant GERD symptoms. No vomiting. Still with mild constipation issues. Last colonoscopy in the fall. Objective - Vital Signs Vital signs: Vital Signs Temp 98 F 04/09/23 13:21 Pulse 96 04/09/23 13:21 Resp BP 148/119 04/09/23 13:21 Pulse Ox FiO2 Intake & Output 04/08/23 04/09/23 04/09/23 18:59 06:59 18:59 Weight 54.885 kg - Exam Abdomen: Soft, nontender, nondistended Assessment/Plan (1) Morbid obesity Narrative/Plan: 58-year-old female with morbid obesity history. Patient has had excellent weight loss. Now she is actually lost too much weight. Patient doing better with multiple small meals throughout the day. She will continue with that for now with a goal weight of about 130. She will contact me if her burning pain persist. If her burning abdominal discomfort persist we discussed restarting her antiacid therapy. Plan recheck 1 year. Plan: Date: 04/09/23 Initial Weight: 118.388 kg Initial BMI: 43.1 Current Weight: 54.885 kg Current BMI: 20.0 Type of Surgery: Total Volume in Band: Previous Volume: Volume Removed: Volume Added: Band Size:
== END ==
LOC: BARWHC3 13:04
PROVIDERS: ATTEND Surgery
DX: E66.01 Morbid (severe) obesity due to excess calories (principal); Z68.20 Body mass index [BMI] 20.0-20.9, adult
CPT/HCPCS: 99211

== ENCOUNTER → 2024-01-02 | Outpatient (CLI) | payer OTHER ==
[2024-01-02 15:40] LABS: C Reactive Protein <0.30 mg/dL (0.00-0.80); Rheumatoid Factor, Qnt <15 IU/mL (0-15)
[2024-01-03 05:38] LABS: Toxoplasma Antibody (IgG) <3.0 IU/mL (<7.2)
[2024-01-03 09:56] LABS: Angiotensin-1 Converting Enz. 77 U/L (8-52)
[2024-01-03 10:02] LABS: HLA B27 POSITIVE
[2024-01-03 13:53] LABS: C-ANCA <1:20 Titer (<1:20)
== END | disposition home or self-care (01) ==
LOC: LABWHC1 09:59
PROVIDERS: ATTEND Optometrist
DX: Z11.59 Encounter for screening for other viral diseases (principal); A53.9 Syphilis, unspecified; A69.20 Lyme disease, unspecified
CPT/HCPCS: 36415; 82164; 85549; 85652; 86038; 86140; 86255; 86431; 86618; 86777; 86780; 86812